=== PATIENT | male | born 1980 | race Two or more races ===

== ENCOUNTER 2023-12-27 12:47 | Inpatient (IN) | payer MEDICAID ==
[~2023-12-27] VITALS: Ht 165.1 cm; Wt 47.6 kg
[2023-12-27] MEDS: IV NS 0.9% 1,000 ML BAG IV ONE ×2 (13:00→13:30)
[2023-12-27] MEDS: CEFEPIME 1 GM in IV D5W 50 ML IV ONE (13:30)
[2023-12-27] MEDS: VANCOMYCIN 1 GM in IV D5W 250 ML IV ONE (13:30)
[2023-12-27] MEDS ORDERED: AMLO5TAB4 GT (13:43)
[2023-12-27] MEDS ORDERED: ASCO-352 GT (13:43)
[2023-12-27] MEDS ORDERED: ACET-2030 GT ×2 (13:43)
[2023-12-27] MEDS ORDERED: ACET-868 GT (13:43)
[2023-12-27] MEDS ORDERED: INSU100V7 SQ (13:43)
[2023-12-27] MEDS ORDERED: LEVE100S GT (13:43)
[2023-12-27] MEDS ORDERED: INSU100V42 SQ (13:43)
[2023-12-27] MEDS ORDERED: MELA5TAB GT (13:43)
[2023-12-27] MEDS ORDERED: PETR113O TP (13:43)
[2023-12-27] MEDS ORDERED: GABA250S2 GT (13:43)
[2023-12-27] MEDS ORDERED: POVI3780 TP (13:43)
[2023-12-27] MEDS ORDERED: ASPI-1169 GT (13:43)
[2023-12-27] MEDS ORDERED: CRAN400C GT (13:43)
[2023-12-27] MEDS ORDERED: BISA10SU11 RC (13:43)
[2023-12-27] MEDS ORDERED: CHOL200026 GT (13:43)
[2023-12-27] MEDS ORDERED: ZINC50TA69 GT (13:43)
[2023-12-27] MEDS ORDERED: LABE100T5 GT (13:43)
[2023-12-27] MEDS ORDERED: DIPH25TA25 GT (13:43)
[2023-12-27] MEDS ORDERED: IPRA3AMP22 IH (13:43)
[2023-12-27] MEDS ORDERED: MULT-594 GT (13:43)
[2023-12-27] MEDS ORDERED: LANS30CA56 GT (13:43)
[2023-12-27 13:48] LABS: BASOPHILS % (AUTO) 0.3 % (0.0-2.0); EOSINOPHILS # (AUTO) 1.4 K/uL (0.0-0.7); EOSINOPHILS % (AUTO) 12.2 % (0.0-6.0); HEMATOCRIT 28 % (39-51); HEMOGLOBIN 8.3 g/dL (13.5-17.5); LYMPHOCYTES # (AUTO) 1.5 K/uL (0.8-4.8); LYMPHOCYTES % (AUTO) 13.3 % (20.0-44.0); MEAN CORPUSCULAR HEMOGLOBIN 27 PG (26.0-33.0); MEAN CORPUSCULAR HGB CONC 30 g/dl (31.0-36.0); MEAN CORPUSCULAR VOLUME 88 fL (80-96); MONOCYTES # (AUTO) 0.3 K/uL (0.1-1.30); MONOCYTES % (AUTO) 2.5 % (2.0-12.0); NEUTROPHILS # (AUTO) 8.1 K/uL (1.8-8.9); NEUTROPHILS % (AUTO) 71.7 % (43.0-81.0); PLATELET COUNT (AUTO) 465 K/uL (150-450); RED BLOOD CELL COUNT(AUTO) 3.11 MIL/uL (4.5-6.0); RED CELL DISTRIBUTION WIDTH 22.7 % (11.5-15.0); WHITE BLOOD COUNT (AUTO) 11.2 K/uL (4.3-11.0)
[2023-12-27 13:57] LABS: CALCIUM, SERUM 9.8 mg/dL (8.5-10.1); CREATININE 1.3 mg/dL (0.6-1.3); POTASSIUM 3.8 mmol/L (3.5-5.1)
[2023-12-27 14:01] LABS: ALBUMIN 2.3 g/dL (3.4-5.0); BILIRUBIN,DIRECT 0.1 mg/dL (0.0-0.2); BILIRUBIN,TOTAL 0.2 mg/dL (0.2-1.0); TOTAL PROTEIN, SERUM 8.1 g/dL (6.4-8.2)
[2023-12-27 14:04] LABS: LACTIC ACID 1.6 mmol/L (0.4-2.0)
[2023-12-27 14:28] LABS: INR 0.96 (0.91-1.10); PARTIAL THROMBOPLASTIN TIME 23.6 SEC (24.3-34.3); PROTHROMBIN TIME 10.2 SECS (9.2-11.1)
[2023-12-27 15:24] LABS: APPEARANCE,URINE CLEAR (CLEAR); BILIRUBIN,URINE NEGATIVE (NEGATIVE); BLOOD, URINE NEGATIVE Ery/uL (NEGATIVE); COLOR,URINE YELLOW (YELLOW); KETONES,URINE NEGATIVE (NEGATIVE); LEUKOCYTE ESTERASE ,URINE NEGATIVE (NEGATIVE); NITRITE, URINE POSITIVE (NEGATIVE); PROTEIN,URINE 3+ mg/dl (NEGATIVE); UGLUCOSE NEGATIVE (NEGATIVE); UROBILINOGEN,URINE 0.2 EU/dL (0.2)
[2023-12-27] MEDS ORDERED: MAGNESIUM HYDROXIDE 30 ML UDC PO PRN (15:30)
[2023-12-27] MEDS ORDERED: ONDANSETRON HCL/PF 4 MG/2 ML VIAL IVP PRN (15:30)
[2023-12-27] MEDS ORDERED: MAG HYDROX/AL HYDROX/SIMETH 30 ML UDC PO PRN (15:30)
[2023-12-27] MEDS ORDERED: ZOLPIDEM TARTRATE 5 MG TABLET PO PRN (15:30)
[2023-12-27 15:35] LABS: ADD URINE CULTURE YES; BACTERIA,URINE 1+ /HPF (None Seen); RBC,URINE 0-2 /HPF (0-2); SQUAMOUS EPITHELIAL CELL,UR Few /HPF (None Seen); WBC,URINE 0-2 /HPF (0-3)
[2023-12-27 15:36] LABS: YEAST,URINE Few /HPF (None Seen)
[2023-12-27 17:00] VITALS: BP 134/80; TEMP 97.9; O2SAT 96
[2023-12-27] MEDS: IV NS 0.9% 1,000 ML IV PRN (17:52)
[2023-12-27 18:32] LABS: CALCIUM, SERUM 9.1 mg/dL (8.5-10.1); POTASSIUM 3.6 mmol/L (3.5-5.1)
[2023-12-27 20:00] VITALS: BP 135/74; TEMP 97.8; O2SAT 99
[2023-12-27] MEDS ORDERED: DIATR MEGLU/DIATRIZOATE SODIUM 30 ML BOTTLE (GASTROGRAPHIN) ONE (20:21)
[2023-12-27] MEDS: CEFEPIME 1 GM in IV D5W 50 ML IV SCH (21:16)
[2023-12-28] VITALS (11 sets, daily range): BP systolic 124–156; BP diastolic 65–84; TEMP 97.7–100.5; O2SAT 96–99
[2023-12-28] MEDS: VANCOMYCIN 750 MG in IV D5W 250 ML IV SCH (00:39)
[2023-12-28] MEDS: IV 1/2NS 1000 ML 1,000 ML IV PRN (02:48)
[2023-12-28] MEDS: GLUCERNA 1.2 1,000 ML BOTTLE NG PRN (09:57)
[2023-12-28 10:42] LABS: BASOPHILS # (AUTO) 0.1 K/uL (0.0-0.2); BASOPHILS % (AUTO) 0.9 % (0.0-2.0); EOSINOPHILS # (AUTO) 0.6 K/uL (0.0-0.7); EOSINOPHILS % (AUTO) 9.5 % (0.0-6.0); HEMATOCRIT 30 % (39-51); HEMOGLOBIN 8.9 g/dL (13.5-17.5); LYMPHOCYTES # (AUTO) 0.6 K/uL (0.8-4.8); LYMPHOCYTES % (AUTO) 8.4 % (20.0-44.0); MEAN CORPUSCULAR HEMOGLOBIN 27 PG (26.0-33.0); MEAN CORPUSCULAR HGB CONC 30 g/dl (31.0-36.0); MEAN CORPUSCULAR VOLUME 89 fL (80-96); MONOCYTES # (AUTO) 0.1 K/uL (0.1-1.30); MONOCYTES % (AUTO) 2.2 % (2.0-12.0); NEUTROPHILS # (AUTO) 5.3 K/uL (1.8-8.9); PLATELET COUNT (AUTO) 572 K/uL (150-450); RED BLOOD CELL COUNT(AUTO) 3.36 MIL/uL (4.5-6.0); RED CELL DISTRIBUTION WIDTH 22.8 % (11.5-15.0); WHITE BLOOD COUNT (AUTO) 6.7 K/uL (4.3-11.0)
[2023-12-28 10:53] LABS: CALCIUM, SERUM 9.5 mg/dL (8.5-10.1); CREATININE 1.1 mg/dL (0.6-1.3); POTASSIUM 4.1 mmol/L (3.5-5.1)
[2023-12-28] MEDS: ACETAMINOPHEN 325 MG TABLET PO PRN (12:10)
[2023-12-28] MEDS: FREE WATER VIA TUBE FEEDING GT SCH (12:41)
[2023-12-28] MEDS ORDERED: Medication Not On Formulary EA (Ipratropium/Albuterol Sulfate (Ipratr-Albuterol 0.5-3 Mg IH PRN (17:00)
[2023-12-28] MEDS ORDERED: DEXTROSE 50%-WATER 50 ML DISP.SYRIN IV PRN (17:00)
[2023-12-28] MEDS: LEVETIRACETAM SOL (5 ML) 100 MG/ML UDC GT SCH (17:23)
[2023-12-28] MEDS: ASPIRIN 81 MG TAB.CHEW GT SCH (17:23)
[2023-12-28] MEDS: LABETALOL HCL (100MG) 100 MG TABLET GT SCH (17:24)
[2023-12-28] MEDS: AMLODIPINE BESYLATE 5 MG TABLET GT SCH (17:24)
[2023-12-28] MEDS: BLOOD SUGAR DIAGNOSTIC 1 EACH STRIP IN SCH (17:25)
[2023-12-28] MEDS ORDERED: ALBUTEROL FS 2.5 MG/3 ML VIAL.NEB NEB PRN (17:30)
[2023-12-28] MEDS ORDERED: IPRATROPIUM NEB FS 0.5 MG/2.5 ML AMPUL.NEB NEB PRN (17:30)
[2023-12-28] MEDS: THERAHONEY GEL 1.5 OZ TUBE TP SCH (17:33)
[2023-12-28] MEDS: INSULIN REGULAR, HUMAN 100 UNIT/ML 3 ML VIAL SQ PRN (17:53)
[2023-12-28] MEDS: INSULIN GLARGINE, 100 UNIT/ML CARTRIDGE SQ SCH (17:54)
[2023-12-28] MEDS ORDERED: BLOOD SUGAR DIAGNOSTIC 1 EACH STRIP IN SCH (18:00)
[2023-12-28] MEDS: GABAPENTIN 300 MG CAPSULE GT SCH (21:15)
[2023-12-29] MEDS: Z GUARD REMEDY 4 OZ OINT TP PRN (00:33)
[2023-12-29 01:15] VITALS: BP 122/64; TEMP 99; O2SAT 88
[2023-12-29 04:49] VITALS: BP 133/66; TEMP 98.8; O2SAT 99
[2023-12-29 07:00] VITALS: BP 126/68; TEMP 98.1; O2SAT 99
[2023-12-29 07:04] LABS: BASOPHILS # (AUTO) 0.1 K/uL (0.0-0.2); EOSINOPHILS # (AUTO) 0.4 K/uL (0.0-0.7); EOSINOPHILS % (AUTO) 4.8 % (0.0-6.0); HEMATOCRIT 23 % (39-51); HEMOGLOBIN 7.2 g/dL (13.5-17.5); LYMPHOCYTES % (AUTO) 12.5 % (20.0-44.0); MEAN CORPUSCULAR HEMOGLOBIN 27 PG (26.0-33.0); MEAN CORPUSCULAR HGB CONC 31 g/dl (31.0-36.0); MEAN CORPUSCULAR VOLUME 88 fL (80-96); MONOCYTES # (AUTO) 0.2 K/uL (0.1-1.30); MONOCYTES % (AUTO) 2.7 % (2.0-12.0); PLATELET COUNT (AUTO) 497 K/uL (150-450); RED BLOOD CELL COUNT(AUTO) 2.62 MIL/uL (4.5-6.0); RED CELL DISTRIBUTION WIDTH 22.8 % (11.5-15.0); WHITE BLOOD COUNT (AUTO) 7.6 K/uL (4.3-11.0)
[2023-12-29 07:21] LABS: CALCIUM, SERUM 9.2 mg/dL (8.5-10.1); CREATININE 0.9 mg/dL (0.6-1.3); MAGNESIUM 3.1 mg/dL (1.8-2.4); PHOSPHORUS 2.5 mg/dL (2.5-4.9); POTASSIUM 4.1 mmol/L (3.5-5.1)
[2023-12-29 11:30] VITALS: BP 135/75; TEMP 98.4; O2SAT 97
[2023-12-29] MEDS: IV D5W 1,000 ML IV ONE (12:37)
[2023-12-29] MEDS: THERAHONEY GEL 1.5 OZ TUBE TP SCH (12:37)
[2023-12-29] MEDS: VANCOMYCIN 500 MG in IV D5W 100ml IV SCH (12:39)
[2023-12-29] MEDS: PANTOPRAZOLE 40 MG/PACK PACK GT SCH (13:56)
[2023-12-29] MEDS: MULTIVIT W/MINERALS 1 TAB TABLET GT SCH (13:56)
[2023-12-29] MEDS: ASCORBIC ACID 500 MG TABLET GT SCH (13:57)
[2023-12-29] MEDS: ZINC SULFATE 220 MG CAPSULE GT SCH (13:57)
[2023-12-29] MEDS: CHOLECALCIFEROL 1,000 UNIT TABLET (VIT D3) GT SCH (13:57)
[2023-12-29 16:00] VITALS: BP 130/71; TEMP 98.2; O2SAT 100
[2023-12-29 20:00] VITALS: BP 122/70; TEMP 98.1; O2SAT 100
[2023-12-30] VITALS (7 sets, daily range): BP systolic 110–188; BP diastolic 58–75; TEMP 97.9–98.8; O2SAT 98–100
[2023-12-30 07:32] LABS: CALCIUM, SERUM 8.3 mg/dL (8.5-10.1); CREATININE 0.8 mg/dL (0.6-1.3); POTASSIUM 3.6 mmol/L (3.5-5.1)
[2023-12-30] MEDS: THERAHONEY GEL 1.5 OZ TUBE TP SCH (08:26)
[2023-12-30 12:11] LABS: THYROID STIMULATING HORMONE 1.48 uIU/mL (0.358-3.74); URIC ACID 6.5 mg/dL (2.6-7.2)
[2023-12-30 12:26] LABS: MAGNESIUM 2.6 mg/dL (1.8-2.4); PHOSPHORUS 2.7 mg/dL (2.5-4.9)
[2023-12-31 05:58] VITALS: O2SAT 99
[2023-12-31 06:43] LABS: BASOPHILS % (AUTO) 0.6 % (0.0-2.0); EOSINOPHILS # (AUTO) 1.4 K/uL (0.0-0.7); HEMATOCRIT 22 % (39-51); HEMOGLOBIN 7.1 g/dL (13.5-17.5); LYMPHOCYTES # (AUTO) 0.8 K/uL (0.8-4.8); LYMPHOCYTES % (AUTO) 14.2 % (20.0-44.0); MEAN CORPUSCULAR HEMOGLOBIN 27 PG (26.0-33.0); MEAN CORPUSCULAR HGB CONC 32 g/dl (31.0-36.0); MEAN CORPUSCULAR VOLUME 85 fL (80-96); MONOCYTES # (AUTO) 0.2 K/uL (0.1-1.30); MONOCYTES % (AUTO) 3.2 % (2.0-12.0); NEUTROPHILS # (AUTO) 2.9 K/uL (1.8-8.9); NEUTROPHILS % (AUTO) 55.1 % (43.0-81.0); PLATELET COUNT (AUTO) 494 K/uL (150-450); RED BLOOD CELL COUNT(AUTO) 2.59 MIL/uL (4.5-6.0); RED CELL DISTRIBUTION WIDTH 21.8 % (11.5-15.0); WHITE BLOOD COUNT (AUTO) 5.3 K/uL (4.3-11.0)
[2023-12-31 06:58] LABS: EOSINOPHILS % (AUTO) 26.9 % (0.0-6.0)
[2023-12-31 07:26] LABS: CREATININE 0.6 mg/dL (0.6-1.3); MAGNESIUM 2.2 mg/dL (1.8-2.4); PHOSPHORUS 2.8 mg/dL (2.5-4.9); POTASSIUM 3.8 mmol/L (3.5-5.1)
[2023-12-31 08:00] VITALS: BP 134/79; TEMP 97.7; O2SAT 100
[2023-12-31 08:11] LABS: EOSINOPHILS % (MANUAL) 23 % (0-4); LYMPHOCYTES % (MANUAL) 16 % (16-48); MONOCYTES % (MANUAL) 1 % (0-11.0); NEUTROPHILS % (MANUAL) 60 (42-76); PLATELET ESTIMATE INCREASED
[2023-12-31 08:16] LABS: ANISOCYTOSIS 2+
[2023-12-31 16:00] VITALS: BP 144/84; TEMP 97.9; O2SAT 100
[2023-12-31 20:00] VITALS: BP 112/76; TEMP 97.8; O2SAT 100
[2024-01-01 05:11] VITALS: O2SAT 99
[2024-01-01] MEDS ORDERED: MAGNESIUM HYDROXIDE 30 ML UDC GT PRN (06:30)
[2024-01-01] MEDS ORDERED: MAG HYDROX/AL HYDROX/SIMETH 30 ML UDC GT PRN (06:30)
[2024-01-01] MEDS ORDERED: ZOLPIDEM TARTRATE 5 MG TABLET GT PRN (06:30)
[2024-01-01 07:23] LABS: BASOPHILS % (AUTO) 0.6 % (0.0-2.0); EOSINOPHILS # (AUTO) 1.3 K/uL (0.0-0.7); HEMATOCRIT 22 % (39-51); HEMOGLOBIN 7.2 g/dL (13.5-17.5); LYMPHOCYTES # (AUTO) 0.8 K/uL (0.8-4.8); LYMPHOCYTES % (AUTO) 18.7 % (20.0-44.0); MEAN CORPUSCULAR HEMOGLOBIN 28 PG (26.0-33.0); MEAN CORPUSCULAR HGB CONC 33 g/dl (31.0-36.0); MEAN CORPUSCULAR VOLUME 86 fL (80-96); MONOCYTES # (AUTO) 0.2 K/uL (0.1-1.30); MONOCYTES % (AUTO) 4.8 % (2.0-12.0); NEUTROPHILS # (AUTO) 2.1 K/uL (1.8-8.9); NEUTROPHILS % (AUTO) 46.7 % (43.0-81.0); PLATELET COUNT (AUTO) 478 K/uL (150-450); RED BLOOD CELL COUNT(AUTO) 2.56 MIL/uL (4.5-6.0); RED CELL DISTRIBUTION WIDTH 21.2 % (11.5-15.0); WHITE BLOOD COUNT (AUTO) 4.5 K/uL (4.3-11.0)
[2024-01-01 07:29] LABS: EOSINOPHILS % (AUTO) 29.2 % (0.0-6.0)
[2024-01-01 07:30] VITALS: BP 133/75; O2SAT 95
[2024-01-01 07:34] LABS: CALCIUM, SERUM 8.2 mg/dL (8.5-10.1); CREATININE 0.5 mg/dL (0.6-1.3); MAGNESIUM 2.1 mg/dL (1.8-2.4); POTASSIUM 4.1 mmol/L (3.5-5.1)
[2024-01-01 08:35] VITALS: BP 130/75
[2024-01-01] MEDS: ACETAMINOPHEN 650 MG/20.3 ML UDC GT PRN (09:03)
[2024-01-01] MEDS: CEFEPIME 2 GM in IV D5W 100 ML IV SCH (09:18)
[2024-01-01] MEDS ORDERED: CEFE2FRO IV (12:26)
[2024-01-01 15:42] LABS: EOSINOPHILS % (MANUAL) 27 % (0-4); LYMPHOCYTES % (MANUAL) 16 % (16-48); MONOCYTES % (MANUAL) 1 % (0-11.0); NEUTROPHILS % (MANUAL) 56 (42-76); PLATELET ESTIMATE ADEQUATE
[2024-01-01 15:43] LABS: ANISOCYTOSIS 1+
== END 2024-01-01 14:30 | DRG 720 ==
LOC: ER 12:52 → TELE 16:13 → MED 12-30 10:42
PROVIDERS: ADMIT Nurse Practitioner Acute Care; ATTEND Nurse Practitioner Acute Care
DX: A41.9 Sepsis, unspecified organism (principal); G93.41 Metabolic encephalopathy; L89.143 Pressure ulcer of left lower back, stage 3; L89.133 Pressure ulcer of right lower back, stage 3; E44.0 Moderate protein-calorie malnutrition; N17.9 Acute kidney failure, unspecified; E87.0 Hyperosmolality and hypernatremia; L89.153 Pressure ulcer of sacral region, stage 3; L89.894 Pressure ulcer of other site, stage 4; L89.313 Pressure ulcer of right buttock, stage 3; R53.2 Functional quadriplegia; E11.22 Type 2 diabetes mellitus with diabetic chronic kidney disease; D64.9 Anemia, unspecified; L89.213 Pressure ulcer of right hip, stage 3; E86.0 Dehydration; N18.9 Chronic kidney disease, unspecified; Z87.820 Personal history of traumatic brain injury; Z93.1 Gastrostomy status; Z68.1 Body mass index [BMI] 19.9 or less, adult; I12.9 Hypertensive chronic kidney disease with stage 1 through stage 4 chronic kidney disease, or unspecified chronic kidney disease; Z74.01 Bed confinement status; R13.10 Dysphagia, unspecified; K21.9 Gastro-esophageal reflux disease without esophagitis; F20.9 Schizophrenia, unspecified; Z79.899 Other long term (current) drug therapy; Z79.51 Long term (current) use of inhaled steroids; Z79.4 Long term (current) use of insulin; Z79.82 Long term (current) use of aspirin; M89.8X9 Other specified disorders of bone, unspecified site; B96.89 Other specified bacterial agents as the cause of diseases classified elsewhere; L89.600 Pressure ulcer of unspecified heel, unstageable; S81.812A Laceration without foreign body, left lower leg, initial encounter; X58.XXXA Exposure to other specified factors, initial encounter; Y92.9 Unspecified place or not applicable; E88.09 Other disorders of plasma-protein metabolism, not elsewhere classified; L98.9 Disorder of the skin and subcutaneous tissue, unspecified; M62.462 Contracture of muscle, left lower leg; M62.461 Contracture of muscle, right lower leg; B37.49 Other urogenital candidiasis; E11.65 Type 2 diabetes mellitus with hyperglycemia; E86.9 Volume depletion, unspecified
CPT/HCPCS: 36415; 71045-TC; 74018; 80048-TC; 80061-TC; 80076-TC; 80202-TC; 81001; 82962-TC; 83605-TC; 83690-TC; 83735-TC; 84100-TC; 84443-TC; 84484-TC; 84550-TC; 85025-TC; 85730-TC; 87040-TC; 87081-TC; 87086-TC; 94760-TC; 94761-TC; 94799-TC; A4223; A6253; A6403; G0378; J0692; J1815; J1953; J3370; J3371; J3490; J7030; J7040; J7042; J7060; J7070; Q9963

== ENCOUNTER 2024-01-31 09:28 | Inpatient (IN) | payer MEDICAID ==
[2024-01-31] VITALS (9 sets, daily range): BP systolic 120–135; BP diastolic 74–83; TEMP 97.4–98.5; O2SAT 93–100
[~2024-01-31] VITALS: Ht 165.1 cm; Wt 45.8 kg
[~2024-01-31 09:28] MED LIST: ACET-2030 GT; ACET-868 GT; AMLO5TAB4 GT; ASCO-352 GT; ASPI-1169 GT; BISA10SU11 RC; CEFE2FRO IV; CHOL200026 GT; CRAN400C GT; DIPH25TA25 GT; GABA250S2 GT; INSU100V42 SQ; INSU100V7 SQ; IPRA3AMP22 IH; LABE100T5 GT; LANS30CA56 GT; LEVE100S GT; MELA5TAB GT; MULT-594 GT; PETR113O TP; POVI3780 TP; ZINC50TA69 GT
[2024-01-31 10:08] LABS: BASOPHILS # (AUTO) 0.1 K/uL (0.0-0.2); BASOPHILS % (AUTO) 0.9 % (0.0-2.0); EOSINOPHILS # (AUTO) 3.1 K/uL (0.0-0.7); HEMATOCRIT 23 % (39-51); HEMOGLOBIN 7.2 g/dL (13.5-17.5); LYMPHOCYTES # (AUTO) 0.8 K/uL (0.8-4.8); LYMPHOCYTES % (AUTO) 10.8 % (20.0-44.0); MEAN CORPUSCULAR HEMOGLOBIN 28 PG (26.0-33.0); MEAN CORPUSCULAR HGB CONC 32 g/dl (31.0-36.0); MEAN CORPUSCULAR VOLUME 88 fL (80-96); MONOCYTES # (AUTO) 0.3 K/uL (0.1-1.30); MONOCYTES % (AUTO) 3.7 % (2.0-12.0); NEUTROPHILS # (AUTO) 3.2 K/uL (1.8-8.9); NEUTROPHILS % (AUTO) 42.6 % (43.0-81.0); PLATELET COUNT (AUTO) 722 K/uL (150-450); RED BLOOD CELL COUNT(AUTO) 2.58 MIL/uL (4.5-6.0); RED CELL DISTRIBUTION WIDTH 18.7 % (11.5-15.0); WHITE BLOOD COUNT (AUTO) 7.4 K/uL (4.3-11.0)
[2024-01-31] MEDS ORDERED: THERAHONEY TP (10:15)
[2024-01-31] MEDS ORDERED: AMIN30LI66 GT (10:15)
[2024-01-31] MEDS ORDERED: XEROFORM TP (10:15)
[2024-01-31] MEDS ORDERED: TRIA80CR12 TP (10:15)
[2024-01-31] MEDS ORDERED: NUT.237L30 GT (10:15)
[2024-01-31 10:19] LABS: INR 0.97 (0.91-1.10); PARTIAL THROMBOPLASTIN TIME 26.7 SEC (24.3-34.3); PROTHROMBIN TIME 10.3 SECS (9.2-11.1)
[2024-01-31 10:28] LABS: CALCIUM, SERUM 9.3 mg/dL (8.5-10.1); CREATININE 0.9 mg/dL (0.6-1.3); POTASSIUM 4.2 mmol/L (3.5-5.1)
[2024-01-31 10:33] LABS: ALBUMIN 1.8 g/dL (3.4-5.0); BILIRUBIN,DIRECT 0.1 mg/dL (0.0-0.2); BILIRUBIN,TOTAL 0.2 mg/dL (0.2-1.0); TOTAL PROTEIN, SERUM 7.8 g/dL (6.4-8.2)
[2024-01-31 12:14] LABS: ANISOCYTOSIS 1+; BASOPHILS % (MANUAL) 0 % (0.0-2.0); EOSINOPHILS % (MANUAL) 42 % (0-4); HYPOCHROMASIA RARE; LYMPHOCYTES % (MANUAL) 11 % (16-48); MONOCYTES % (MANUAL) 2 % (0-11.0); NEUTROPHILS % (MANUAL) 45 (42-76); PLATELET ESTIMATE ADEQUATE; STOMATOCYTES 1+
[2024-01-31] MEDS ORDERED: ONDANSETRON HCL/PF 4 MG/2 ML VIAL IVP PRN (15:00)
[2024-01-31] MEDS ORDERED: Medication Not On Formulary EA (Ipratropium/Albuterol Sulfate (Ipratr-Albuterol 0.5-3 Mg IH PRN (15:00)
[2024-01-31] MEDS ORDERED: Z GUARD REMEDY 4 OZ OINT TP PRN (15:00)
[2024-01-31] MEDS ORDERED: IPRATROPIUM NEB FS 0.5 MG/2.5 ML AMPUL.NEB NEB PRN (16:30)
[2024-01-31] MEDS ORDERED: ALBUTEROL FS 2.5 MG/3 ML VIAL.NEB NEB PRN (16:30)
[2024-01-31] MEDS: LEVETIRACETAM SOL (5 ML) 100 MG/ML UDC GT SCH (17:36)
[2024-01-31] MEDS: LABETALOL HCL (100MG) 100 MG TABLET GT SCH (17:39)
[2024-01-31 17:45] LABS: IRON, SERUM 19 ug/dl (50-175); TOTAL IRON BINDING CAPACITY 177 ug/dl (250-450)
[2024-01-31] MEDS: GLUCERNA 1.2 1,000 ML BOTTLE NG PRN (17:46)
[2024-01-31 17:58] LABS: FERRITIN 220 ng/mL (8-388)
[2024-01-31] MEDS: BLOOD SUGAR DIAGNOSTIC 1 EACH STRIP IN SCH (18:24)
[2024-01-31 19:09] LABS: APPEARANCE,URINE TURBID (CLEAR); BILIRUBIN,URINE NEGATIVE (NEGATIVE); BLOOD, URINE NEGATIVE Ery/uL (NEGATIVE); COLOR,URINE YELLOW (YELLOW); KETONES,URINE NEGATIVE (NEGATIVE); LEUKOCYTE ESTERASE ,URINE 2+ (NEGATIVE); NITRITE, URINE NEGATIVE (NEGATIVE); PROTEIN,URINE 3+ mg/dl (NEGATIVE); UGLUCOSE NEGATIVE (NEGATIVE); UROBILINOGEN,URINE 0.2 EU/dL (0.2)
[2024-01-31 19:11] LABS: ADD URINE CULTURE YES; BACTERIA,URINE 2+ /HPF (None Seen); MUCUS,URINE Few /LPF (None Seen); SQUAMOUS EPITHELIAL CELL,UR None Seen /HPF (None Seen); YEAST,URINE Many /HPF (None Seen)
[2024-01-31] MEDS: GABAPENTIN 300 MG CAPSULE GT SCH (20:42)
[2024-02-01] VITALS: BP 133/84; TEMP 98.1; O2SAT 100
[2024-02-01 04:00] VITALS: BP 129/78; TEMP 98.6; O2SAT 100
[2024-02-01] MEDS: INSULIN REGULAR, HUMAN 100 UNIT/ML 3 ML VIAL SQ PRN (06:11)
[2024-02-01 08:00] VITALS: BP 126/83; TEMP 97.7; O2SAT 100
[2024-02-01] MEDS: ASCORBIC ACID 500 MG TABLET GT SCH (08:40)
[2024-02-01] MEDS: CHOLECALCIFEROL 1,000 UNIT TABLET (VIT D3) GT SCH (08:40)
[2024-02-01] MEDS: MULTIVITAMINS,THERAGRAN 1 UDTAB TABLET GT SCH (08:40)
[2024-02-01] MEDS: AMLODIPINE BESYLATE 5 MG TABLET GT SCH (08:41)
[2024-02-01] MEDS: INSULIN GLARGINE, 100 UNIT/ML CARTRIDGE SQ SCH (09:21)
[2024-02-01] MEDS: THERAHONEY GEL 1.5 OZ TUBE TP SCH ×2 (11:56→13:21)
[2024-02-01 12:00] VITALS: BP 131/80; TEMP 97.3; O2SAT 92
[2024-02-01 12:42] LABS: CALCIUM, SERUM 9.1 mg/dL (8.5-10.1); CREATININE 0.7 mg/dL (0.6-1.3); MAGNESIUM 2.5 mg/dL (1.8-2.4); PHOSPHORUS 3.5 mg/dL (2.5-4.9); POTASSIUM 4.1 mmol/L (3.5-5.1)
[2024-02-01 12:59] LABS: THYROID STIMULATING HORMONE 1.61 uIU/mL (0.358-3.74)
[2024-02-01 13:12] LABS: BASOPHILS % (AUTO) 0.4 % (0.0-2.0); EOSINOPHILS # (AUTO) 3.1 K/uL (0.0-0.7); HEMATOCRIT 29 % (39-51); HEMOGLOBIN 9.7 g/dL (13.5-17.5); LYMPHOCYTES # (AUTO) 0.8 K/uL (0.8-4.8); LYMPHOCYTES % (AUTO) 9.6 % (20.0-44.0); MEAN CORPUSCULAR HEMOGLOBIN 28 PG (26.0-33.0); MEAN CORPUSCULAR HGB CONC 33 g/dl (31.0-36.0); MEAN CORPUSCULAR VOLUME 85 fL (80-96); MONOCYTES # (AUTO) 0.4 K/uL (0.1-1.30); MONOCYTES % (AUTO) 4.8 % (2.0-12.0); NEUTROPHILS # (AUTO) 3.9 K/uL (1.8-8.9); NEUTROPHILS % (AUTO) 47.6 % (43.0-81.0); PLATELET COUNT (AUTO) 676 K/uL (150-450); RED BLOOD CELL COUNT(AUTO) 3.44 MIL/uL (4.5-6.0); RED CELL DISTRIBUTION WIDTH 20.3 % (11.5-15.0); WHITE BLOOD COUNT (AUTO) 8.2 K/uL (4.3-11.0)
[2024-02-01 13:13] LABS: EOSINOPHILS % (AUTO) 37.6 % (0.0-6.0)
[2024-02-01 16:00] VITALS: BP 132/79; TEMP 97.9; O2SAT 92
[2024-02-01 16:13] LABS: BAND % (MANUAL) 2 % (0.0-5.0); EOSINOPHILS % (MANUAL) 8 % (0-4); LYMPHOCYTES % (MANUAL) 10 % (16-48); NEUTROPHILS % (MANUAL) 80 (42-76)
[2024-02-01 20:00] VITALS: BP 126/75; TEMP 98.1; O2SAT 94
[2024-02-02] VITALS (8 sets, daily range): BP systolic 134–149; BP diastolic 72–90; TEMP 97.5–100.4; O2SAT 94–100
[2024-02-02] MEDS: DEXTROSE 50%-WATER 50 ML DISP.SYRIN IV PRN (00:10)
[2024-02-02 07:30] LABS: BASOPHILS % (AUTO) 0.3 % (0.0-2.0); EOSINOPHILS # (AUTO) 2.8 K/uL (0.0-0.7); HEMATOCRIT 30 % (39-51); HEMOGLOBIN 9.7 g/dL (13.5-17.5); LYMPHOCYTES # (AUTO) 0.8 K/uL (0.8-4.8); LYMPHOCYTES % (AUTO) 8.1 % (20.0-44.0); MEAN CORPUSCULAR HEMOGLOBIN 28 PG (26.0-33.0); MEAN CORPUSCULAR HGB CONC 32 g/dl (31.0-36.0); MEAN CORPUSCULAR VOLUME 86 fL (80-96); MONOCYTES # (AUTO) 0.5 K/uL (0.1-1.30); MONOCYTES % (AUTO) 4.7 % (2.0-12.0); NEUTROPHILS # (AUTO) 5.7 K/uL (1.8-8.9); NEUTROPHILS % (AUTO) 58.2 % (43.0-81.0); PLATELET COUNT (AUTO) 734 K/uL (150-450); WHITE BLOOD COUNT (AUTO) 9.9 K/uL (4.3-11.0)
[2024-02-02 07:40] LABS: CALCIUM, SERUM 9.5 mg/dL (8.5-10.1); CREATININE 0.9 mg/dL (0.6-1.3); POTASSIUM 4.5 mmol/L (3.5-5.1)
[2024-02-02 07:46] LABS: EOSINOPHILS % (AUTO) 28.7 % (0.0-6.0)
[2024-02-02 07:49] LABS: C-REACTIVE PROTEIN 2.4 mg/dL (0.0-0.30)
[2024-02-02 08:33] LABS: RHEUMATOID FACTOR SCREEN NEGATIVE (NEGATIVE)
[2024-02-02 08:45] LABS: BASOPHILS % (MANUAL) 0 % (0.0-2.0); EOSINOPHILS % (MANUAL) 25 % (0-4); LYMPHOCYTES % (MANUAL) 10 % (16-48); MONOCYTES % (MANUAL) 3 % (0-11.0); NEUTROPHILS % (MANUAL) 62 (42-76)
[2024-02-02 08:46] LABS: ANISOCYTOSIS 1+; PLATELET ESTIMATE INCREASED
[2024-02-02] MEDS: POLYETHYLENE GLYCOL 3350 17 GM POWD.PACK GT SCH (13:00)
[2024-02-02] MEDS: SOD FERRIC GLUC 125 MG in IV NS 0.9% 100 ML IV SCH (13:38)
[2024-02-02] MEDS: PERMETHRIN 5% CRM 60 GM TUBE TP ONE (13:38)
[2024-02-02] MEDS: ACETAMINOPHEN 650 MG/20.3 ML UDC GT PRN (21:07)
[2024-02-03 04:00] VITALS: BP 145/71; TEMP 100; O2SAT 96
[2024-02-03 08:00] VITALS: BP 148/86; TEMP 98.1; O2SAT 100
[2024-02-03 08:06] LABS: IMMUNOGLOBULIN A, SERUM 446 mg/dL (90-386); IMMUNOGLOBULIN G, SERUM 2189 mg/dL (603-1613); IMMUNOGLOBULIN M, SERUM 155 mg/dL (20-172)
[2024-02-03 08:36] LABS: OCCULT BLOOD STOOL NEGATIVE (NEGATIVE)
[2024-02-03] MEDS: CEFTRIAXONE 1 G in IV D5W 50 ML IV SCH (09:35)
[2024-02-03] MEDS: diphenhydrAMINE HCL ELIX 25 MG/10 ML UDC PEG PRN (11:34)
[2024-02-03 12:09] LABS: *ANA ANTI-CENTROMERE B AB <0.2 AI (0.0-0.9); *ANA ANTI-DNA(DS) AB, QN 5 IU/mL (0-9); *ANA ANTI-JO-1 <0.2 AI (0.0-0.9); *ANA ANTICHROMATIN ANTIBODY <0.2 AI (0.0-0.9); *ANA RNP ANTIBODIES <0.2 AI (0.0-0.9); *ANA SJOGREN'S ANTI-SS-A <0.2 AI (0.0-0.9); *ANA SJOGREN'S ANTI-SS-B <0.2 AI (0.0-0.9); *ANAANTI-SCLERODERMA-70 AB <0.2 AI (0.0-0.9); *ANASMITH AB <0.2 AI (0.0-0.9)
[2024-02-03 13:06] LABS: CALCIUM, SERUM 9.1 mg/dL (8.5-10.1); CREATININE 0.7 mg/dL (0.6-1.3); POTASSIUM 4.8 mmol/L (3.5-5.1)
[2024-02-03 13:15] LABS: BASOPHILS # (AUTO) 0.1 K/uL (0.0-0.2); BASOPHILS % (AUTO) 0.6 % (0.0-2.0); EOSINOPHILS # (AUTO) 1.4 K/uL (0.0-0.7); EOSINOPHILS % (AUTO) 10.6 % (0.0-6.0); HEMATOCRIT 30 % (39-51); HEMOGLOBIN 9.6 g/dL (13.5-17.5); LYMPHOCYTES # (AUTO) 0.4 K/uL (0.8-4.8); LYMPHOCYTES % (AUTO) 3.1 % (20.0-44.0); MEAN CORPUSCULAR HEMOGLOBIN 28 PG (26.0-33.0); MEAN CORPUSCULAR HGB CONC 32 g/dl (31.0-36.0); MEAN CORPUSCULAR VOLUME 87 fL (80-96); MONOCYTES # (AUTO) 0.5 K/uL (0.1-1.30); MONOCYTES % (AUTO) 3.8 % (2.0-12.0); NEUTROPHILS # (AUTO) 10.6 K/uL (1.8-8.9); NEUTROPHILS % (AUTO) 81.9 % (43.0-81.0); PLATELET COUNT (AUTO) 678 K/uL (150-450); RED BLOOD CELL COUNT(AUTO) 3.47 MIL/uL (4.5-6.0); RED CELL DISTRIBUTION WIDTH 19.8 % (11.5-15.0); WHITE BLOOD COUNT (AUTO) 12.9 K/uL (4.3-11.0)
[2024-02-03 14:32] LABS: MAGNESIUM 2.2 mg/dL (1.8-2.4); PHOSPHORUS 4.5 mg/dL (2.5-4.9)
[2024-02-03 16:00] VITALS: BP 154/78; TEMP 98.9; O2SAT 100
[2024-02-03 20:00] VITALS: BP 148/76; TEMP 102.2; O2SAT 98
[2024-02-04 04:00] VITALS: BP 128/85; TEMP 100.8; O2SAT 95
[2024-02-04 08:00] VITALS: BP 130/71; TEMP 98.4; O2SAT 98
[2024-02-04 08:42] LABS: BASOPHILS # (AUTO) 0.1 K/uL (0.0-0.2); BASOPHILS % (AUTO) 0.9 % (0.0-2.0); EOSINOPHILS # (AUTO) 0.8 K/uL (0.0-0.7); EOSINOPHILS % (AUTO) 6.4 % (0.0-6.0); HEMATOCRIT 25 % (39-51); LYMPHOCYTES # (AUTO) 0.6 K/uL (0.8-4.8); LYMPHOCYTES % (AUTO) 5.1 % (20.0-44.0); MEAN CORPUSCULAR HEMOGLOBIN 28 PG (26.0-33.0); MEAN CORPUSCULAR HGB CONC 32 g/dl (31.0-36.0); MEAN CORPUSCULAR VOLUME 87 fL (80-96); MONOCYTES # (AUTO) 0.6 K/uL (0.1-1.30); MONOCYTES % (AUTO) 5.3 % (2.0-12.0); NEUTROPHILS # (AUTO) 9.7 K/uL (1.8-8.9); NEUTROPHILS % (AUTO) 82.3 % (43.0-81.0); PLATELET COUNT (AUTO) 533 K/uL (150-450); RED BLOOD CELL COUNT(AUTO) 2.87 MIL/uL (4.5-6.0); RED CELL DISTRIBUTION WIDTH 19.5 % (11.5-15.0); WHITE BLOOD COUNT (AUTO) 11.8 K/uL (4.3-11.0)
[2024-02-04 08:48] LABS: CALCIUM, SERUM 8.9 mg/dL (8.5-10.1); CREATININE 0.9 mg/dL (0.6-1.3); MAGNESIUM 2.2 mg/dL (1.8-2.4); POTASSIUM 4.3 mmol/L (3.5-5.1)
[2024-02-04 16:00] VITALS: BP 147/75; TEMP 98.2; O2SAT 100
[2024-02-05 00:51] VITALS: BP 137/68; TEMP 100.5; O2SAT 100
[2024-02-05 04:00] VITALS: BP 145/67; TEMP 101.3; O2SAT 96
[2024-02-05 07:04] LABS: BASOPHILS % (AUTO) 0.4 % (0.0-2.0); EOSINOPHILS # (AUTO) 0.6 K/uL (0.0-0.7); EOSINOPHILS % (AUTO) 6.2 % (0.0-6.0); HEMATOCRIT 26 % (39-51); HEMOGLOBIN 8.5 g/dL (13.5-17.5); LYMPHOCYTES # (AUTO) 0.6 K/uL (0.8-4.8); LYMPHOCYTES % (AUTO) 6.1 % (20.0-44.0); MEAN CORPUSCULAR HEMOGLOBIN 28 PG (26.0-33.0); MEAN CORPUSCULAR HGB CONC 32 g/dl (31.0-36.0); MEAN CORPUSCULAR VOLUME 87 fL (80-96); MONOCYTES # (AUTO) 0.4 K/uL (0.1-1.30); MONOCYTES % (AUTO) 4.2 % (2.0-12.0); NEUTROPHILS # (AUTO) 7.8 K/uL (1.8-8.9); NEUTROPHILS % (AUTO) 83.1 % (43.0-81.0); PLATELET COUNT (AUTO) 527 K/uL (150-450); RED BLOOD CELL COUNT(AUTO) 3.03 MIL/uL (4.5-6.0); RED CELL DISTRIBUTION WIDTH 18.8 % (11.5-15.0); WHITE BLOOD COUNT (AUTO) 9.4 K/uL (4.3-11.0)
[2024-02-05 07:17] LABS: CALCIUM, SERUM 8.9 mg/dL (8.5-10.1); POTASSIUM 4.3 mmol/L (3.5-5.1)
[2024-02-05 08:00] VITALS: BP 135/60; TEMP 98.6; O2SAT 100
[2024-02-05] MEDS: MEROPENEM 1 G in IV NS 0.9% 100 ML IV SCH (09:33)
[2024-02-05] MEDS: VANCOMYCIN 1 GM in IV D5W 250ml IV ONE (09:59)
[2024-02-05 16:00] VITALS: BP 108/65; TEMP 98.7; O2SAT 100
[2024-02-05 16:11] LABS: *SPE A/G RATIO 0.4 (0.7-1.7); *SPE ALBUMIN 2.2 g/dL (2.9-4.4); *SPE ALPHA-1-GLOBULIN 0.4 g/dL (0.0-0.4); *SPE ALPHA-2-GLOBULIN 1.1 g/dL (0.4-1.0); *SPE BETA GLOBULIN 1.2 g/dL (0.7-1.3); *SPE M-SPIKE Not Observed g/dL (Not Observed); *SPE PROTEIN TOTAL 7.2 g/dL (6.0-8.5); *SPEGAMMA GLOBULIN 2.2 g/dL (0.4-1.8)
[2024-02-05 20:00] VITALS: BP 140/66; O2SAT 98
[2024-02-05] MEDS: FERROUS SULFATE (325 MG) 325 MG/TAB TABLET PO SCH (20:15)
[2024-02-05] MEDS: VANCOMYCIN 750 MG in IV D5W 250 ML IV SCH (22:00)
[2024-02-06 04:00] VITALS: BP 136/79; TEMP 97.9; O2SAT 99
[2024-02-06 08:00] VITALS: BP 121/76; TEMP 99.3; O2SAT 97
[2024-02-06 08:11] LABS: CALCIUM, SERUM 8.7 mg/dL (8.5-10.1); CREATININE 0.8 mg/dL (0.6-1.3); MAGNESIUM 2.6 mg/dL (1.8-2.4); PHOSPHORUS 2.8 mg/dL (2.5-4.9); POTASSIUM 4.6 mmol/L (3.5-5.1)
[2024-02-06 10:08] LABS: FREE KAPPA LT CHAINS SERUM 120.4 mg/L (3.3-19.4); FREE LAMBDA LT CHAIN SERUM 100.1 mg/L (5.7-26.3)
[2024-02-06 11:54] LABS: BASOPHILS % (AUTO) 0.2 % (0.0-2.0); EOSINOPHILS # (AUTO) 1.3 K/uL (0.0-0.7); EOSINOPHILS % (AUTO) 13.9 % (0.0-6.0); HEMATOCRIT 24 % (39-51); HEMOGLOBIN 7.7 g/dL (13.5-17.5); LYMPHOCYTES # (AUTO) 0.6 K/uL (0.8-4.8); LYMPHOCYTES % (AUTO) 5.7 % (20.0-44.0); MEAN CORPUSCULAR HEMOGLOBIN 28 PG (26.0-33.0); MEAN CORPUSCULAR HGB CONC 32 g/dl (31.0-36.0); MEAN CORPUSCULAR VOLUME 87 fL (80-96); MONOCYTES # (AUTO) 0.5 K/uL (0.1-1.30); MONOCYTES % (AUTO) 5.1 % (2.0-12.0); NEUTROPHILS # (AUTO) 7.3 K/uL (1.8-8.9); NEUTROPHILS % (AUTO) 75.1 % (43.0-81.0); PLATELET COUNT (AUTO) 420 K/uL (150-450); RED CELL DISTRIBUTION WIDTH 17.8 % (11.5-15.0); WHITE BLOOD COUNT (AUTO) 9.7 K/uL (4.3-11.0)
[2024-02-06 16:00] VITALS: BP 139/69; TEMP 99; O2SAT 97
[2024-02-06] MEDS: FERROUS SULFATE (325 MG) 325 MG/TAB TABLET GT SCH (16:41)
[2024-02-06 18:00] VITALS: BP 139/69; TEMP 99; O2SAT 97
[2024-02-06 20:00] VITALS: BP 126/70; TEMP 98.6; O2SAT 100
[2024-02-06] MEDS ORDERED: VANCOMYCIN 1 GM in IV D5W 250ml IV SCH (21:00)
[2024-02-07 04:00] VITALS: BP 132/78; TEMP 99; O2SAT 99
[2024-02-07 08:00] VITALS: BP 127/109; TEMP 98; O2SAT 100
[2024-02-07] MEDS: VANCOMYCIN 1 GM in IV D5W 250ml IV SCH (08:29)
[2024-02-07 10:05] LABS: BASOPHILS % (AUTO) 0.3 % (0.0-2.0); EOSINOPHILS # (AUTO) 1.2 K/uL (0.0-0.7); EOSINOPHILS % (AUTO) 18.5 % (0.0-6.0); HEMATOCRIT 25 % (39-51); HEMOGLOBIN 8.2 g/dL (13.5-17.5); LYMPHOCYTES # (AUTO) 0.6 K/uL (0.8-4.8); LYMPHOCYTES % (AUTO) 8.8 % (20.0-44.0); MEAN CORPUSCULAR HEMOGLOBIN 28 PG (26.0-33.0); MEAN CORPUSCULAR HGB CONC 32 g/dl (31.0-36.0); MEAN CORPUSCULAR VOLUME 87 fL (80-96); MONOCYTES # (AUTO) 0.4 K/uL (0.1-1.30); MONOCYTES % (AUTO) 6.6 % (2.0-12.0); NEUTROPHILS # (AUTO) 4.2 K/uL (1.8-8.9); NEUTROPHILS % (AUTO) 65.8 % (43.0-81.0); PLATELET COUNT (AUTO) 401 K/uL (150-450); RED BLOOD CELL COUNT(AUTO) 2.93 MIL/uL (4.5-6.0); RED CELL DISTRIBUTION WIDTH 17.7 % (11.5-15.0); WHITE BLOOD COUNT (AUTO) 6.5 K/uL (4.3-11.0)
[2024-02-07 10:22] LABS: CALCIUM, SERUM 8.9 mg/dL (8.5-10.1); CREATININE 0.9 mg/dL (0.6-1.3); MAGNESIUM 2.2 mg/dL (1.8-2.4); PHOSPHORUS 2.6 mg/dL (2.5-4.9); POTASSIUM 4.8 mmol/L (3.5-5.1)
[2024-02-07 16:00] VITALS: BP 119/72; TEMP 98.8; O2SAT 100
[2024-02-07 20:00] VITALS: BP 113/72; TEMP 99.1; O2SAT 100
[2024-02-08 04:00] VITALS: BP 122/78; TEMP 99.2; O2SAT 100
[2024-02-08 07:51] LABS: BASOPHILS % (AUTO) 0.4 % (0.0-2.0); EOSINOPHILS # (AUTO) 1.7 K/uL (0.0-0.7); HEMATOCRIT 24 % (39-51); HEMOGLOBIN 7.8 g/dL (13.5-17.5); LYMPHOCYTES # (AUTO) 0.8 K/uL (0.8-4.8); LYMPHOCYTES % (AUTO) 11.9 % (20.0-44.0); MEAN CORPUSCULAR HEMOGLOBIN 28 PG (26.0-33.0); MEAN CORPUSCULAR HGB CONC 32 g/dl (31.0-36.0); MEAN CORPUSCULAR VOLUME 86 fL (80-96); MONOCYTES # (AUTO) 0.5 K/uL (0.1-1.30); NEUTROPHILS # (AUTO) 3.4 K/uL (1.8-8.9); NEUTROPHILS % (AUTO) 53.7 % (43.0-81.0); PLATELET COUNT (AUTO) 359 K/uL (150-450); RED BLOOD CELL COUNT(AUTO) 2.82 MIL/uL (4.5-6.0); RED CELL DISTRIBUTION WIDTH 17.4 % (11.5-15.0); WHITE BLOOD COUNT (AUTO) 6.4 K/uL (4.3-11.0)
[2024-02-08 08:15] LABS: CALCIUM, SERUM 9.1 mg/dL (8.5-10.1); CREATININE 0.9 mg/dL (0.6-1.3); POTASSIUM 5.2 mmol/L (3.5-5.1)
[2024-02-08 08:20] VITALS: BP 135/76; TEMP 98.4; O2SAT 99
[2024-02-08 08:38] LABS: BASOPHILS % (MANUAL) 0 % (0.0-2.0); EOSINOPHILS % (MANUAL) 24 % (0-4); LYMPHOCYTES % (MANUAL) 14 % (16-48); MONOCYTES % (MANUAL) 4 % (0-11.0); NEUTROPHILS % (MANUAL) 58 (42-76); PLATELET ESTIMATE ADEQUATE
[2024-02-08 16:07] VITALS: BP 136/82; TEMP 98.2; O2SAT 100
[2024-02-08 20:00] VITALS: BP 130/85; TEMP 98.4; O2SAT 100
[2024-02-09 04:00] VITALS: BP 124/83; TEMP 98.6; O2SAT 99
[2024-02-09 07:53] LABS: BASOPHILS # (AUTO) 0.1 K/uL (0.0-0.2); BASOPHILS % (AUTO) 0.9 % (0.0-2.0); EOSINOPHILS # (AUTO) 1.7 K/uL (0.0-0.7); HEMATOCRIT 27 % (39-51); HEMOGLOBIN 8.4 g/dL (13.5-17.5); LYMPHOCYTES # (AUTO) 0.9 K/uL (0.8-4.8); LYMPHOCYTES % (AUTO) 14.9 % (20.0-44.0); MEAN CORPUSCULAR HEMOGLOBIN 28 PG (26.0-33.0); MEAN CORPUSCULAR HGB CONC 32 g/dl (31.0-36.0); MEAN CORPUSCULAR VOLUME 87 fL (80-96); MONOCYTES # (AUTO) 0.4 K/uL (0.1-1.30); NEUTROPHILS # (AUTO) 3.1 K/uL (1.8-8.9); NEUTROPHILS % (AUTO) 49.9 % (43.0-81.0); PLATELET COUNT (AUTO) 405 K/uL (150-450); RED BLOOD CELL COUNT(AUTO) 3.04 MIL/uL (4.5-6.0); RED CELL DISTRIBUTION WIDTH 18.4 % (11.5-15.0); WHITE BLOOD COUNT (AUTO) 6.1 K/uL (4.3-11.0)
[2024-02-09 07:58] LABS: EOSINOPHILS % (AUTO) 28.3 % (0.0-6.0)
[2024-02-09 08:00] VITALS: BP 154/82; TEMP 97.7; TEMP 98.2; O2SAT 100
[2024-02-09 08:02] LABS: CALCIUM, SERUM 9.9 mg/dL (8.5-10.1); CREATININE 0.7 mg/dL (0.6-1.3); POTASSIUM 4.9 mmol/L (3.5-5.1)
[2024-02-09 08:22] VITALS: O2SAT 99
[2024-02-09 12:58] LABS: ANISOCYTOSIS 1+; BAND % (MANUAL) 2 % (0.0-5.0); BASOPHILS % (MANUAL) 0 % (0.0-2.0); EOSINOPHILS % (MANUAL) 20 % (0-4); LYMPHOCYTES % (MANUAL) 15 % (16-48); MONOCYTES % (MANUAL) 8 % (0-11.0); NEUTROPHILS % (MANUAL) 55 (42-76); PLATELET ESTIMATE ADEQUATE
[2024-02-09 16:00] VITALS: BP 154/82; TEMP 98.2; O2SAT 100
[2024-02-09] MEDS: INDOMETHACIN 25 MG CAPSULE PO SCH (18:04)
[2024-02-09 20:00] VITALS: BP 138/72; TEMP 98.4; O2SAT 95
[2024-02-10 04:00] VITALS: BP 115/77; TEMP 98.7; O2SAT 100
[2024-02-10 08:00] VITALS: BP 124/72; TEMP 98.4; O2SAT 100
[2024-02-10] MEDS: COLCHICINE 0.6 MG TABLET PO SCH (09:12)
[2024-02-10] MEDS ORDERED: FERR325T28 GT (11:55)
[2024-02-10] MEDS ORDERED: INDO-13 PO (11:55)
[2024-02-10] MEDS ORDERED: Colchicine PO (11:55)
[2024-02-10] MEDS ORDERED: VANC1PLA9 IV (11:55)
[2024-02-10 13:18] LABS: BASOPHILS # (AUTO) 0.1 K/uL (0.0-0.2); BASOPHILS % (AUTO) 0.9 % (0.0-2.0); EOSINOPHILS # (AUTO) 1.8 K/uL (0.0-0.7); HEMATOCRIT 24 % (39-51); HEMOGLOBIN 7.5 g/dL (13.5-17.5); LYMPHOCYTES # (AUTO) 0.9 K/uL (0.8-4.8); LYMPHOCYTES % (AUTO) 12.3 % (20.0-44.0); MEAN CORPUSCULAR HEMOGLOBIN 27 PG (26.0-33.0); MEAN CORPUSCULAR HGB CONC 32 g/dl (31.0-36.0); MEAN CORPUSCULAR VOLUME 85 fL (80-96); MONOCYTES # (AUTO) 0.4 K/uL (0.1-1.30); NEUTROPHILS # (AUTO) 4.1 K/uL (1.8-8.9); NEUTROPHILS % (AUTO) 56.3 % (43.0-81.0); PLATELET COUNT (AUTO) 401 K/uL (150-450); RED BLOOD CELL COUNT(AUTO) 2.76 MIL/uL (4.5-6.0); RED CELL DISTRIBUTION WIDTH 17.6 % (11.5-15.0); WHITE BLOOD COUNT (AUTO) 7.2 K/uL (4.3-11.0)
[2024-02-10 13:19] LABS: EOSINOPHILS % (AUTO) 25.5 % (0.0-6.0)
[2024-02-10 13:34] LABS: CALCIUM, SERUM 9.8 mg/dL (8.5-10.1); CREATININE 0.9 mg/dL (0.6-1.3)
[2024-02-10 16:00] VITALS: BP 124/56; TEMP 98.2; O2SAT 100
[2024-02-10 17:47] LABS: BAND % (MANUAL) 4 % (0.0-5.0); EOSINOPHILS % (MANUAL) 24 % (0-4); LYMPHOCYTES % (MANUAL) 13 % (16-48); MONOCYTES % (MANUAL) 4 % (0-11.0); NEUTROPHILS % (MANUAL) 55 (42-76); PLATELET ESTIMATE ADEQUATE; ROULEAUX 1+
[2024-02-10 17:48] LABS: ANISOCYTOSIS 1+; STOMATOCYTES 1+
[2024-02-10 20:00] VITALS: BP 110/73; TEMP 97.5; O2SAT 100
[2024-02-11 04:00] VITALS: BP 115/75; TEMP 98; O2SAT 100
[2024-02-11 08:00] VITALS: BP 120/79; TEMP 97.5; O2SAT 95
[2024-02-11 09:17] LABS: BASOPHILS # (AUTO) 0.1 K/uL (0.0-0.2); BASOPHILS % (AUTO) 0.8 % (0.0-2.0); EOSINOPHILS # (AUTO) 2.8 K/uL (0.0-0.7); EOSINOPHILS % (AUTO) 32.9 % (0.0-6.0); HEMATOCRIT 25 % (39-51); HEMOGLOBIN 8.1 g/dL (13.5-17.5); LYMPHOCYTES # (AUTO) 0.8 K/uL (0.8-4.8); LYMPHOCYTES % (AUTO) 9.1 % (20.0-44.0); MEAN CORPUSCULAR HEMOGLOBIN 28 PG (26.0-33.0); MEAN CORPUSCULAR HGB CONC 33 g/dl (31.0-36.0); MEAN CORPUSCULAR VOLUME 85 fL (80-96); MONOCYTES # (AUTO) 0.4 K/uL (0.1-1.30); NEUTROPHILS # (AUTO) 4.5 K/uL (1.8-8.9); NEUTROPHILS % (AUTO) 52.2 % (43.0-81.0); PLATELET COUNT (AUTO) 428 K/uL (150-450); RED BLOOD CELL COUNT(AUTO) 2.92 MIL/uL (4.5-6.0); RED CELL DISTRIBUTION WIDTH 17.7 % (11.5-15.0); WHITE BLOOD COUNT (AUTO) 8.6 K/uL (4.3-11.0)
[2024-02-11 09:27] LABS: CALCIUM, SERUM 9.9 mg/dL (8.5-10.1); CREATININE 0.7 mg/dL (0.6-1.3); POTASSIUM 5.4 mmol/L (3.5-5.1)
[2024-02-11] MEDS: SODIUM POLYSTYRENE SULFONATE 15 G/60 ML BOTTLE PO ONE (10:36)
[2024-02-11 11:31] LABS: EOSINOPHILS % (MANUAL) 32 % (0-4); LYMPHOCYTES % (MANUAL) 7 % (16-48); MONOCYTES % (MANUAL) 4 % (0-11.0); NEUTROPHILS % (MANUAL) 57 (42-76); PLATELET ESTIMATE ADEQUATE
[2024-02-11 16:00] VITALS: BP 117/89; TEMP 97.8; O2SAT 95
[2024-02-11] MEDS: GLUCERNA 1.2 1,000 ML BOTTLE NG PRN (17:12)
[2024-02-11] MEDS ORDERED: IVERMECTIN 3 MG TABLET PO ONE (18:30)
[2024-02-11] MEDS: FLUCONAZOLE (100 MG) 100 MG TABLET PO SCH (18:52)
[2024-02-11 20:00] VITALS: BP 147/60; TEMP 97.7; O2SAT 96
[2024-02-12] MEDS: IVERMECTIN 3 MG TABLET PO ONE (01:37)
[2024-02-12 04:00] VITALS: BP 121/72; TEMP 97.7; O2SAT 94
[2024-02-12 08:00] VITALS: BP 118/72; TEMP 97.7; O2SAT 100
[2024-02-12 08:03] LABS: CALCIUM, SERUM 9.6 mg/dL (8.5-10.1); CREATININE 0.7 mg/dL (0.6-1.3); POTASSIUM 4.7 mmol/L (3.5-5.1)
[2024-02-12] MEDS ORDERED: NEPRO 1,000 ML BOTTLE GT PRN (08:30)
[2024-02-12] MEDS: PROSOURCE / PROSTAT (PYXIS) 30 ML UDC GT SCH (09:02)
[2024-02-12] MEDS ORDERED: FLUC100T8 PO (11:40)
[2024-02-12 16:00] VITALS: BP 114/54; TEMP 98.5; O2SAT 98
[2024-02-13] MEDS ORDERED: VANCOMYCIN 500 MG in IV D5W 100ml IV SCH (09:00)
== END 2024-02-12 18:34 | DRG 663 ==
LOC: ER 09:36 → TELE1 11:33 → MEDSG1 02-02 11:52
PROVIDERS: ADMIT Nurse Practitioner Family; ATTEND Internal Medicine
PROC: 30233H1 Transfusion of Nonautologous Whole Blood into Peripheral Vein, Percutaneous Approach (ICD-10-PCS; principal; 2024-01-31)
PROC: 0JBQ0ZZ Excision of Right Foot Subcutaneous Tissue and Fascia, Open Approach (ICD-10-PCS; 2024-02-08)
PROC: 0JBP0ZZ Excision of Left Lower Leg Subcutaneous Tissue and Fascia, Open Approach (ICD-10-PCS; 2024-02-08)
DX: D64.9 Anemia, unspecified (principal); G93.41 Metabolic encephalopathy; E43 Unspecified severe protein-calorie malnutrition; L89.153 Pressure ulcer of sacral region, stage 3; I31.39 Other pericardial effusion (noninflammatory); N17.9 Acute kidney failure, unspecified; D68.59 Other primary thrombophilia; E86.0 Dehydration; E86.9 Volume depletion, unspecified; R53.2 Functional quadriplegia; E87.0 Hyperosmolality and hypernatremia; J96.10 Chronic respiratory failure, unspecified whether with hypoxia or hypercapnia; E11.22 Type 2 diabetes mellitus with diabetic chronic kidney disease; K21.9 Gastro-esophageal reflux disease without esophagitis; I12.9 Hypertensive chronic kidney disease with stage 1 through stage 4 chronic kidney disease, or unspecified chronic kidney disease; N18.9 Chronic kidney disease, unspecified; Z20.822 Contact with and (suspected) exposure to COVID-19; F20.9 Schizophrenia, unspecified; Z87.820 Personal history of traumatic brain injury; G40.909 Epilepsy, unspecified, not intractable, without status epilepticus; Z74.01 Bed confinement status; R13.10 Dysphagia, unspecified; S91.114A Laceration without foreign body of right lesser toe(s) without damage to nail, initial encounter; X58.XXXA Exposure to other specified factors, initial encounter; Y92.9 Unspecified place or not applicable; Z93.1 Gastrostomy status; Z99.81 Dependence on supplemental oxygen; Z79.51 Long term (current) use of inhaled steroids; Z79.4 Long term (current) use of insulin; Z79.899 Other long term (current) drug therapy; Z79.82 Long term (current) use of aspirin; E88.09 Other disorders of plasma-protein metabolism, not elsewhere classified; B86 Scabies; D75.838 Other thrombocytosis; E87.5 Hyperkalemia; L97.929 Non-pressure chronic ulcer of unspecified part of left lower leg with unspecified severity; N39.0 Urinary tract infection, site not specified; Z87.440 Personal history of urinary (tract) infections; M24.562 Contracture, left knee; M24.561 Contracture, right knee; S01.312A Laceration without foreign body of left ear, initial encounter; S01.311A Laceration without foreign body of right ear, initial encounter; B96.89 Other specified bacterial agents as the cause of diseases classified elsewhere; R78.81 Bacteremia; B95.62 Methicillin resistant Staphylococcus aureus infection as the cause of diseases classified elsewhere
CPT/HCPCS: 36415; 71045-TC; 80048-TC; 80076-TC; 80202-TC; 81001; 82272-TC; 82378; 82607-TC; 82728-TC; 82784; 82962-TC; 83540-TC; 83735-TC; 84100-TC; 84155; 84165; 84443-TC; 85025-TC; 85730-TC; 86140-TC; 86225; 86235; 86334; 86431-TC; 86850-TC; 87040-TC; 87086-TC; 93307-TC; 94762-TC; 94799-TC; A4223; A6403; G0378; J0696; J1815; J1953; J2185; J2916; J3370; J3371; J7030; J7050; J7060; P9016; Q0163

== ENCOUNTER 2024-06-28 10:29 | Inpatient (IN) | payer MEDICAID ==
[~2024-06-28] VITALS: Ht 167.6 cm; Wt 49.9 kg
[~2024-06-28 10:29] MED LIST changes: +AMIN30LI66 GT; -CEFE2FRO IV; +Colchicine PO; -DIPH25TA25 GT; +FERR325T28 GT; +FLUC100T8 PO; +INDO-13 PO; +NUT.237L30 GT; +THERAHONEY TP; +TRIA80CR12 TP; +VANC1PLA9 IV; +XEROFORM TP
[2024-06-28 11:25] LABS: BASOPHILS # (AUTO) 0.2 K/uL (0.0-0.2); BASOPHILS % (AUTO) 0.8 % (0.0-2.0); EOSINOPHILS # (AUTO) 8.6 K/uL (0.0-0.7); HEMATOCRIT 27 % (39-51); LYMPHOCYTES # (AUTO) 1.2 K/uL (0.8-4.8); LYMPHOCYTES % (AUTO) 5.9 % (20.0-44.0); MEAN CORPUSCULAR HEMOGLOBIN 30 PG (26.0-33.0); MEAN CORPUSCULAR HGB CONC 34 g/dl (31.0-36.0); MEAN CORPUSCULAR VOLUME 87 fL (80-96); MONOCYTES # (AUTO) 1.2 K/uL (0.1-1.30); MONOCYTES % (AUTO) 5.8 % (2.0-12.0); NEUTROPHILS # (AUTO) 9.8 K/uL (1.8-8.9); NEUTROPHILS % (AUTO) 46.6 % (43.0-81.0); PLATELET COUNT (AUTO) 298 K/uL (150-450); RED BLOOD CELL COUNT(AUTO) 3.05 MIL/uL (4.5-6.0); RED CELL DISTRIBUTION WIDTH 16.4 % (11.5-15.0); WHITE BLOOD COUNT (AUTO) 21.1 K/uL (4.3-11.0)
[2024-06-28] MEDS: CEFEPIME 1 GM in IV D5W 50 ML IV ONE (11:28)
[2024-06-28 11:31] LABS: APPEARANCE,URINE TURBID (CLEAR); BILIRUBIN,URINE NEGATIVE (NEGATIVE); BLOOD, URINE 1+ Ery/uL (NEGATIVE); COLOR,URINE YELLOW (YELLOW); KETONES,URINE NEGATIVE (NEGATIVE); LEUKOCYTE ESTERASE ,URINE 1+ (NEGATIVE); NITRITE, URINE NEGATIVE (NEGATIVE); PH,URINE 5.5 (5.0-8.0); PROTEIN,URINE 3+ mg/dl (NEGATIVE); UGLUCOSE NEGATIVE (NEGATIVE); UROBILINOGEN,URINE 0.2 EU/dL (0.2)
[2024-06-28 11:32] LABS: EOSINOPHILS % (AUTO) 40.9 % (0.0-6.0)
[2024-06-28 11:35] LABS: INR 1.01 (0.91-1.10); PARTIAL THROMBOPLASTIN TIME 28.4 SEC (24.3-34.3); PROTHROMBIN TIME 10.7 SECS (9.2-11.1)
[2024-06-28 11:36] LABS: CALCIUM, SERUM 11.3 mg/dL (8.5-10.1); CREATININE 1.7 mg/dL (0.6-1.3); POTASSIUM 3.6 mmol/L (3.5-5.1)
[2024-06-28 11:39] LABS: ADD URINE CULTURE YES; BACTERIA,URINE Moderate /HPF (None Seen); SQUAMOUS EPITHELIAL CELL,UR Few /HPF (None Seen)
[2024-06-28 11:41] LABS: ALBUMIN 1.8 g/dL (3.4-5.0); BILIRUBIN,DIRECT 0.1 mg/dL (0.0-0.2); BILIRUBIN,TOTAL 0.2 mg/dL (0.2-1.0); TOTAL PROTEIN, SERUM 8.6 g/dL (6.4-8.2)
[2024-06-28] MEDS: VANCOMYCIN 1 GM in IV D5W 250 ML IV ONE (11:46)
[2024-06-28] MEDS: IV NS 0.9% 1,000 ML BAG IV ONE (11:50)
[2024-06-28] MEDS ORDERED: MAGNESIUM HYDROXIDE 30 ML UDC PO PRN (12:30)
[2024-06-28] MEDS ORDERED: ACETAMINOPHEN 325 MG TABLET PO PRN (12:30)
[2024-06-28] MEDS ORDERED: MAG HYDROX/AL HYDROX/SIMETH 30 ML UDC PO PRN (12:30)
[2024-06-28] MEDS ORDERED: ONDANSETRON HCL/PF 4 MG/2 ML VIAL IVP PRN (12:30)
[2024-06-28] MEDS ORDERED: Z GUARD REMEDY 4 OZ OINT TP PRN (12:30)
[2024-06-28] MEDS ORDERED: ZINC220C6 GT (12:37)
[2024-06-28] MEDS ORDERED: LABE200T5 GT (12:37)
[2024-06-28] MEDS ORDERED: COLL30OI TP (12:37)
[2024-06-28] MEDS ORDERED: PANT40SU2 GT (12:37)
[2024-06-28] MEDS ORDERED: LACT1CAP89 GT (12:37)
[2024-06-28] MEDS ORDERED: ONDA-97 GT (12:37)
[2024-06-28] MEDS ORDERED: CRAN3875 GT (12:37)
[2024-06-28] MEDS ORDERED: DIPH25TA27 GT (12:37)
[2024-06-28] MEDS ORDERED: SODI10PO GT (12:37)
[2024-06-28] MEDS ORDERED: AMLO-213 GT (12:37)
[2024-06-28] MEDS ORDERED: GABA-532 GT (12:37)
[2024-06-28] MEDS ORDERED: GLUC1KIT IM (12:37)
[2024-06-28] MEDS ORDERED: CRAN425C6 GT (12:37)
[2024-06-28] MEDS ORDERED: DOCU100C36 GT (12:37)
[2024-06-28] MEDS ORDERED: IPRA3AMP23 NEB ×2 (12:37)
[2024-06-28] MEDS ORDERED: HONE44PA TP (12:37)
[2024-06-28] MEDS ORDERED: QUET25TA GT (12:37)
[2024-06-28] MEDS ORDERED: ACET325T53 GT ×2 (12:37)
[2024-06-28] MEDS ORDERED: SEVE0.8P GT (12:37)
[2024-06-28] MEDS ORDERED: CRAN300T GT (12:37)
[2024-06-28] MEDS ORDERED: NUT.237L67 GT (12:37)
[2024-06-28] MEDS ORDERED: BUME0.5T5 GT (12:37)
[2024-06-28] MEDS ORDERED: ENOXAPARIN SODIUM 40 MG/0.4 ML DISP.SYRIN SQ ONE (12:43)
[2024-06-28] MEDS: ENOXAPARIN SODIUM 40 MG/0.4 ML DISP.SYRIN SQ SCH (12:45)
[2024-06-28] MEDS ORDERED: CEFEPIME 2 GM in IV D5W 100 ML IV SCH (13:00)
[2024-06-28 13:33] LABS: BASOPHILS % (MANUAL) 0 % (0.0-2.0); EOSINOPHILS % (MANUAL) 38 % (0-4); LYMPHOCYTES % (MANUAL) 8 % (16-48); MONOCYTES % (MANUAL) 6 % (0-11.0); NEUTROPHILS % (MANUAL) 48 (42-76)
[2024-06-28 13:34] LABS: ANISOCYTOSIS 1+; PLATELET ESTIMATE ADEQUATE; STOMATOCYTES 1+
[2024-06-28 17:07] VITALS: BP 128/67; TEMP 97.2; O2SAT 99
[2024-06-28 20:00] VITALS: BP 141/71; TEMP 97.5; O2SAT 100
[2024-06-28] MEDS: IV NS 0.9% 1,000 ML IV PRN (20:36)
[2024-06-28] MEDS: CEFEPIME 2 GM in IV D5W 100 ML IV SCH (23:17)
[2024-06-28] MEDS: VANCOMYCIN 750 MG in IV D5W 250 ML IV SCH (23:57)
[2024-06-29] VITALS: BP 140/69; TEMP 98.1; O2SAT 100
[2024-06-29 04:00] VITALS: BP 146/73; TEMP 98.5; O2SAT 100
[2024-06-29 07:14] LABS: BASOPHILS # (AUTO) 0.4 K/uL (0.0-0.2); BASOPHILS % (AUTO) 2.4 % (0.0-2.0); HEMATOCRIT 26 % (39-51); HEMOGLOBIN 8.6 g/dL (13.5-17.5); LYMPHOCYTES # (AUTO) 0.7 K/uL (0.8-4.8); LYMPHOCYTES % (AUTO) 3.8 % (20.0-44.0); MEAN CORPUSCULAR HEMOGLOBIN 29 PG (26.0-33.0); MEAN CORPUSCULAR HGB CONC 33 g/dl (31.0-36.0); MEAN CORPUSCULAR VOLUME 88 fL (80-96); MONOCYTES % (AUTO) 5.8 % (2.0-12.0); NEUTROPHILS # (AUTO) 7.8 K/uL (1.8-8.9); NEUTROPHILS % (AUTO) 43.5 % (43.0-81.0); PLATELET COUNT (AUTO) 293 K/uL (150-450); RED BLOOD CELL COUNT(AUTO) 2.94 MIL/uL (4.5-6.0); RED CELL DISTRIBUTION WIDTH 16.5 % (11.5-15.0)
[2024-06-29 07:25] LABS: CALCIUM, SERUM 10.4 mg/dL (8.5-10.1); CREATININE 1.5 mg/dL (0.6-1.3); MAGNESIUM 1.8 mg/dL (1.8-2.4); PHOSPHORUS 3.6 mg/dL (2.5-4.9); POTASSIUM 3.7 mmol/L (3.5-5.1)
[2024-06-29 07:29] LABS: EOSINOPHILS % (AUTO) 44.5 % (0.0-6.0)
[2024-06-29 08:00] VITALS: BP 150/80; TEMP 98; O2SAT 100
[2024-06-29 10:59] LABS: EOSINOPHILS % (MANUAL) 51 % (0-4); LYMPHOCYTES % (MANUAL) 1 % (16-48); MONOCYTES % (MANUAL) 2 % (0-11.0); NEUTROPHILS % (MANUAL) 46 (42-76); PLATELET ESTIMATE ADEQUATE
[2024-06-29 11:00] LABS: ANISOCYTOSIS 1+; STOMATOCYTES 2+
[2024-06-29] MEDS ORDERED: Medication Not On Formulary EA (Melatonin 5 MG) GT SCH (11:00)
[2024-06-29] MEDS: AMLODIPINE BESYLATE 10 MG TABLET GT SCH (11:36)
[2024-06-29] MEDS: LEVETIRACETAM SOL (5 ML) 100 MG/ML UDC GT SCH (11:36)
[2024-06-29] MEDS: SEVELAMER CARBONATE 800 MG POWD.PACK GT SCH (11:37)
[2024-06-29 12:00] VITALS: BP 160/80; TEMP 97.5; O2SAT 99
[2024-06-29] MEDS: GABAPENTIN 100 MG CAPSULE GT SCH (13:03)
[2024-06-29] MEDS: NEPRO 1,000 ML BOTTLE GT SCH (13:13)
[2024-06-29] MEDS ORDERED: MAGNESIUM HYDROXIDE 30 ML UDC GT PRN (13:14)
[2024-06-29] MEDS ORDERED: MAG HYDROX/AL HYDROX/SIMETH 30 ML UDC GT PRN (13:14)
[2024-06-29] MEDS ORDERED: ALBUTEROL FS 2.5 MG/3 ML VIAL.NEB NEB PRN (13:30)
[2024-06-29] MEDS ORDERED: IPRATROPIUM NEB FS 0.5 MG/2.5 ML AMPUL.NEB NEB PRN (13:30)
[2024-06-29] MEDS: ALBUTEROL FS 2.5 MG/3 ML VIAL.NEB NEB SCH (14:05)
[2024-06-29] MEDS: IPRATROPIUM NEB FS 0.5 MG/2.5 ML AMPUL.NEB NEB SCH (14:05)
[2024-06-29 16:00] VITALS: BP 158/79; TEMP 97.9; O2SAT 100
[2024-06-29] MEDS: LABETALOL HCL (100MG) 100 MG TABLET GT SCH (16:51)
[2024-06-29] MEDS: QUETIAPINE FUMARATE 25 MG TABLET GT SCH (16:52)
[2024-06-29] MEDS: INSULIN GLARGINE, 100 UNIT/ML CARTRIDGE SQ SCH (17:41)
[2024-06-29 20:00] VITALS: BP 150/74; TEMP 99.5; O2SAT 100
[2024-06-30] VITALS: BP 149/72; TEMP 98.6; O2SAT 100
[2024-06-30 05:00] VITALS: BP 153/70; TEMP 98.3; O2SAT 100
[2024-06-30 08:00] VITALS: BP 146/79; TEMP 97.8; O2SAT 100
[2024-06-30] MEDS: DOCUSATE SODIUM LIQ 100 MG/10 ML UDC GT SCH (08:48)
[2024-06-30] MEDS: PANTOPRAZOLE 40 MG/PACK PACK GT SCH (08:48)
[2024-06-30] MEDS: ZINC SULFATE 220 MG CAPSULE GT SCH (08:49)
[2024-06-30 11:22] LABS: BASOPHILS # (AUTO) 0.3 K/uL (0.0-0.2); BASOPHILS % (AUTO) 1.9 % (0.0-2.0); EOSINOPHILS # (AUTO) 6.6 K/uL (0.0-0.7); HEMATOCRIT 25 % (39-51); HEMOGLOBIN 8.3 g/dL (13.5-17.5); LYMPHOCYTES % (AUTO) 5.5 % (20.0-44.0); MEAN CORPUSCULAR HEMOGLOBIN 29 PG (26.0-33.0); MEAN CORPUSCULAR HGB CONC 33 g/dl (31.0-36.0); MEAN CORPUSCULAR VOLUME 87 fL (80-96); MONOCYTES # (AUTO) 1.2 K/uL (0.1-1.30); MONOCYTES % (AUTO) 6.6 % (2.0-12.0); NEUTROPHILS # (AUTO) 8.5 K/uL (1.8-8.9); NEUTROPHILS % (AUTO) 48.3 % (43.0-81.0); PLATELET COUNT (AUTO) 262 K/uL (150-450); RED BLOOD CELL COUNT(AUTO) 2.89 MIL/uL (4.5-6.0); RED CELL DISTRIBUTION WIDTH 16.4 % (11.5-15.0); WHITE BLOOD COUNT (AUTO) 17.6 K/uL (4.3-11.0)
[2024-06-30 11:26] LABS: EOSINOPHILS % (AUTO) 37.7 % (0.0-6.0)
[2024-06-30 12:00] VITALS: BP 140/60; TEMP 97.8; O2SAT 100
[2024-06-30 12:32] LABS: EOSINOPHILS % (MANUAL) 44 % (0-4); LYMPHOCYTES % (MANUAL) 4 % (16-48); MONOCYTES % (MANUAL) 5 % (0-11.0); NEUTROPHILS % (MANUAL) 47 (42-76); PLATELET ESTIMATE ADEQUATE
[2024-06-30 12:33] LABS: ANISOCYTOSIS 1+; STOMATOCYTES 1+
[2024-06-30 13:24] LABS: BASOPHILS # (AUTO) 0.4 K/uL (0.0-0.2); BASOPHILS % (AUTO) 2.2 % (0.0-2.0); EOSINOPHILS # (AUTO) 7.1 K/uL (0.0-0.7); HEMATOCRIT 25 % (39-51); HEMOGLOBIN 8.4 g/dL (13.5-17.5); LYMPHOCYTES % (AUTO) 5.7 % (20.0-44.0); MEAN CORPUSCULAR HEMOGLOBIN 30 PG (26.0-33.0); MEAN CORPUSCULAR HGB CONC 34 g/dl (31.0-36.0); MEAN CORPUSCULAR VOLUME 87 fL (80-96); MONOCYTES # (AUTO) 1.2 K/uL (0.1-1.30); MONOCYTES % (AUTO) 6.5 % (2.0-12.0); NEUTROPHILS # (AUTO) 8.3 K/uL (1.8-8.9); NEUTROPHILS % (AUTO) 46.1 % (43.0-81.0); PLATELET COUNT (AUTO) 262 K/uL (150-450); RED BLOOD CELL COUNT(AUTO) 2.82 MIL/uL (4.5-6.0); RED CELL DISTRIBUTION WIDTH 16.3 % (11.5-15.0)
[2024-06-30 13:39] LABS: ALBUMIN 1.5 g/dL (3.4-5.0); BILIRUBIN,TOTAL 0.2 mg/dL (0.2-1.0); CALCIUM, SERUM 10.4 mg/dL (8.5-10.1); CREATININE 1.3 mg/dL (0.6-1.3); MAGNESIUM 1.8 mg/dL (1.8-2.4); PHOSPHORUS 2.9 mg/dL (2.5-4.9); POTASSIUM 3.1 mmol/L (3.5-5.1); TOTAL PROTEIN, SERUM 7.7 g/dL (6.4-8.2)
[2024-06-30 14:01] LABS: EOSINOPHILS % (AUTO) 39.5 % (0.0-6.0)
[2024-06-30] MEDS ORDERED: MEROPENEM 500 MG in IV NS 0.9% 50 ML IV SCH (15:30)
[2024-06-30 16:00] VITALS: BP 125/60; TEMP 97.9; O2SAT 100
[2024-06-30] MEDS: MEROPENEM 1 G in IV NS 0.9% 100 ML IV SCH (17:22)
[2024-06-30] MEDS: POTASSIUM CHLORIDE 20 MEQ POWDER PACKET GT SCH (17:25)
[2024-06-30] MEDS: NEPRO 1,000 ML BOTTLE GT SCH (17:43)
[2024-06-30 20:14] VITALS: BP 146/73; TEMP 99.3; O2SAT 100
[2024-06-30] MEDS: MUPIROCIN OINT 2% 22 GM TUBE NS SCH (21:20)
[2024-06-30] MEDS: VANCOMYCIN 500 MG in IV D5W 100ml IV SCH (23:39)
[2024-07-01] VITALS (7 sets, daily range): BP systolic 146–163; BP diastolic 69–76; TEMP 97.8–98.8; O2SAT 100
[2024-07-01] MEDS: NEOMY SULF/BACITRAC ZN/POLY 15 GM TUBE TP SCH (10:27)
[2024-07-01] MEDS: DAKINS QUARTER STRENGTH (0.125%) 480 ML BOTTLE TOP SCH (10:27)
[2024-07-01] MEDS: THERAHONEY GEL 1.5 OZ TUBE TP SCH (12:10)
[2024-07-01] MEDS: POTASSIUM CHLORIDE 20 MEQ POWDER PACKET GT ONE (13:24)
[2024-07-01 16:16] LABS: CALCIUM, SERUM 10.8 mg/dL (8.5-10.1); CREATININE 1.1 mg/dL (0.6-1.3); POTASSIUM 4.1 mmol/L (3.5-5.1)
[2024-07-02] VITALS: BP 142/68; TEMP 98.1; O2SAT 100
[2024-07-02] MEDS: VANCOMYCIN 750 MG in IV D5W 250 ML IV SCH (02:29)
[2024-07-02 04:00] VITALS: BP 151/72; TEMP 98.7; O2SAT 100
[2024-07-02 08:00] VITALS: BP 158/75; TEMP 98.6; O2SAT 100
[2024-07-02 11:21] LABS: CALCIUM, SERUM 10.2 mg/dL (8.5-10.1); CREATININE 1.2 mg/dL (0.6-1.3); POTASSIUM 3.7 mmol/L (3.5-5.1)
[2024-07-02 12:00] VITALS: BP 151/73; TEMP 98.2; O2SAT 100
[2024-07-02] MEDS: FREE WATER VIA TUBE FEEDING GT SCH (12:00)
[2024-07-02 12:06] LABS: *SPE A/G RATIO 0.4 (0.7-1.7); *SPE ALBUMIN 2.1 g/dL (2.9-4.4); *SPE ALPHA-1-GLOBULIN 0.3 g/dL (0.0-0.4); *SPE ALPHA-2-GLOBULIN 0.9 g/dL (0.4-1.0); *SPE GLOBULIN, TOTAL 4.7 g/dL (2.2-3.9); *SPE M-SPIKE Not Observed g/dL (Not Observed); *SPE PROTEIN TOTAL 6.8 g/dL (6.0-8.5); *SPEGAMMA GLOBULIN 2.4 g/dL (0.4-1.8)
[2024-07-02 16:00] VITALS: BP 153/73; TEMP 98.8; O2SAT 100
[2024-07-02 20:00] VITALS: BP 148/70; TEMP 98.1; O2SAT 100
[2024-07-02] MEDS: PERMETHRIN 5% CRM 60 GM TUBE TP ONE (21:34)
[2024-07-02] MEDS: IVERMECTIN 3 MG TABLET PO ONE (21:38)
[2024-07-02 23:06] LABS: PTH, INTACT 7 pg/mL (15-65)
[2024-07-03] VITALS: BP 150/71; TEMP 98.2; O2SAT 100
[2024-07-03 04:00] VITALS: BP 145/77; TEMP 98.2; O2SAT 100
[2024-07-03 08:00] VITALS: BP 156/80; TEMP 97.5; O2SAT 99
[2024-07-03] MEDS: DEXTROSE 50%-WATER 50 ML DISP.SYRIN IVP ONE (08:43)
[2024-07-03 12:00] VITALS: BP 146/78; TEMP 97.7; O2SAT 100
[2024-07-03 16:00] VITALS: BP 141/79; TEMP 97.9; O2SAT 100
[2024-07-03 17:50] LABS: BASOPHILS # (AUTO) 0.1 K/uL (0.0-0.2); BASOPHILS % (AUTO) 0.8 % (0.0-2.0); EOSINOPHILS # (AUTO) 5.4 K/uL (0.0-0.7); HEMATOCRIT 24 % (39-51); HEMOGLOBIN 8.1 g/dL (13.5-17.5); LYMPHOCYTES # (AUTO) 1.1 K/uL (0.8-4.8); LYMPHOCYTES % (AUTO) 7.1 % (20.0-44.0); MEAN CORPUSCULAR HEMOGLOBIN 30 PG (26.0-33.0); MEAN CORPUSCULAR HGB CONC 34 g/dl (31.0-36.0); MEAN CORPUSCULAR VOLUME 88 fL (80-96); MONOCYTES # (AUTO) 0.7 K/uL (0.1-1.30); MONOCYTES % (AUTO) 4.7 % (2.0-12.0); NEUTROPHILS # (AUTO) 7.6 K/uL (1.8-8.9); NEUTROPHILS % (AUTO) 50.9 % (43.0-81.0); PLATELET COUNT (AUTO) 189 K/uL (150-450); RED BLOOD CELL COUNT(AUTO) 2.72 MIL/uL (4.5-6.0); RED CELL DISTRIBUTION WIDTH 16.4 % (11.5-15.0); WHITE BLOOD COUNT (AUTO) 14.9 K/uL (4.3-11.0)
[2024-07-03 17:54] LABS: EOSINOPHILS % (AUTO) 36.5 % (0.0-6.0)
[2024-07-03 17:57] LABS: CALCIUM, SERUM 10.3 mg/dL (8.5-10.1); CREATININE 1.1 mg/dL (0.6-1.3); MAGNESIUM 1.6 mg/dL (1.8-2.4); PHOSPHORUS 2.6 mg/dL (2.5-4.9); POTASSIUM 4.5 mmol/L (3.5-5.1)
[2024-07-03 20:00] VITALS: BP 156/71; TEMP 97.6; O2SAT 100
[2024-07-03 21:55] LABS: ANISOCYTOSIS 1+; EOSINOPHILS % (MANUAL) 36 % (0-4); LYMPHOCYTES % (MANUAL) 6 % (16-48); MONOCYTES % (MANUAL) 1 % (0-11.0); NEUTROPHILS % (MANUAL) 57 (42-76); PLATELET ESTIMATE ADEQUATE
[2024-07-04] VITALS: BP 153/69; TEMP 97.7; O2SAT 100
[2024-07-04 04:00] VITALS: BP 155/67; TEMP 97.9; O2SAT 100
[2024-07-04] MEDS: BLOOD SUGAR DIAGNOSTIC 1 EACH STRIP IN SCH (06:18)
[2024-07-04] MEDS: INSULIN REGULAR, HUMAN 100 UNIT/ML 3 ML VIAL SQ PRN (06:24)
[2024-07-04 08:00] VITALS: BP 162/85; TEMP 97.6; O2SAT 100
[2024-07-04 12:00] VITALS: BP 152/74; TEMP 97.8; O2SAT 100
[2024-07-04 16:00] VITALS: BP 149/71; TEMP 97.8; O2SAT 100
[2024-07-04] MEDS: LIDOCAINE 2%-EPI 1:100,000 30 ML VIAL TP ONE (16:42)
[2024-07-04 17:29] LABS: BASOPHILS # (AUTO) 0.2 K/uL (0.0-0.2); BASOPHILS % (AUTO) 1.2 % (0.0-2.0); EOSINOPHILS # (AUTO) 6.7 K/uL (0.0-0.7); HEMATOCRIT 23 % (39-51); HEMOGLOBIN 7.4 g/dL (13.5-17.5); LYMPHOCYTES # (AUTO) 1.2 K/uL (0.8-4.8); LYMPHOCYTES % (AUTO) 6.6 % (20.0-44.0); MEAN CORPUSCULAR HEMOGLOBIN 29 PG (26.0-33.0); MEAN CORPUSCULAR HGB CONC 33 g/dl (31.0-36.0); MEAN CORPUSCULAR VOLUME 88 fL (80-96); MONOCYTES # (AUTO) 0.7 K/uL (0.1-1.30); MONOCYTES % (AUTO) 3.9 % (2.0-12.0); NEUTROPHILS # (AUTO) 9.6 K/uL (1.8-8.9); NEUTROPHILS % (AUTO) 51.8 % (43.0-81.0); PLATELET COUNT (AUTO) 200 K/uL (150-450); RED BLOOD CELL COUNT(AUTO) 2.56 MIL/uL (4.5-6.0); RED CELL DISTRIBUTION WIDTH 16.2 % (11.5-15.0); WHITE BLOOD COUNT (AUTO) 18.5 K/uL (4.3-11.0)
[2024-07-04 17:45] LABS: CALCIUM, SERUM 10.2 mg/dL (8.5-10.1); CREATININE 1.1 mg/dL (0.6-1.3); POTASSIUM 4.3 mmol/L (3.5-5.1)
[2024-07-04 20:00] VITALS: BP 158/74; TEMP 98.2; O2SAT 96
[2024-07-04 20:54] LABS: EOSINOPHILS % (AUTO) 36.5 % (0.0-6.0)
[2024-07-04 21:06] LABS: BAND % (MANUAL) 3 % (0.0-5.0); EOSINOPHILS % (MANUAL) 22 % (0-4); LYMPHOCYTES % (MANUAL) 10 % (16-48); MONOCYTES % (MANUAL) 5 % (0-11.0); NEUTROPHILS % (MANUAL) 60 (42-76)
[2024-07-04 21:07] LABS: ANISOCYTOSIS 1+; PLATELET ESTIMATE ADEQUATE; ROULEAUX 1+
[2024-07-05] VITALS: BP 147/74; TEMP 98.4; O2SAT 98
[2024-07-05] MEDS: DEXTROSE 50%-WATER 50 ML DISP.SYRIN IV PRN (00:13)
[2024-07-05 04:00] VITALS: BP 145/77; TEMP 98.4; O2SAT 98
[2024-07-05 08:00] VITALS: BP 150/80; TEMP 98.3; O2SAT 98
[2024-07-05 11:58] LABS: CALCIUM, SERUM 10.3 mg/dL (8.5-10.1); CREATININE 1.1 mg/dL (0.6-1.3); POTASSIUM 3.9 mmol/L (3.5-5.1)
[2024-07-05 12:00] VITALS: BP 135/71; TEMP 98.4; O2SAT 98
[2024-07-05 14:56] LABS: BASOPHILS # (AUTO) 0.2 K/uL (0.0-0.2); BASOPHILS % (AUTO) 0.8 % (0.0-2.0); LYMPHOCYTES # (AUTO) 1.1 K/uL (0.8-4.8); LYMPHOCYTES % (AUTO) 6.2 % (20.0-44.0); MEAN CORPUSCULAR HEMOGLOBIN 30 PG (26.0-33.0); MEAN CORPUSCULAR HGB CONC 33 g/dl (31.0-36.0); MEAN CORPUSCULAR VOLUME 88 fL (80-96); MONOCYTES # (AUTO) 0.9 K/uL (0.1-1.30); MONOCYTES % (AUTO) 5.3 % (2.0-12.0); NEUTROPHILS # (AUTO) 9.5 K/uL (1.8-8.9); NEUTROPHILS % (AUTO) 53.7 % (43.0-81.0); PLATELET COUNT (AUTO) 170 K/uL (150-450); RED BLOOD CELL COUNT(AUTO) 2.19 MIL/uL (4.5-6.0); RED CELL DISTRIBUTION WIDTH 16.7 % (11.5-15.0); WHITE BLOOD COUNT (AUTO) 17.7 K/uL (4.3-11.0)
[2024-07-05 15:00] LABS: HEMATOCRIT 19 % (39-51); HEMOGLOBIN 6.5 g/dL (13.5-17.5)
[2024-07-05 15:49] LABS: ANISOCYTOSIS 1+; EOSINOPHILS % (MANUAL) 40 % (0-4); LYMPHOCYTES % (MANUAL) 9 % (16-48); MONOCYTES % (MANUAL) 1 % (0-11.0); NEUTROPHILS % (MANUAL) 50 (42-76); PLATELET ESTIMATE ADEQUATE
[2024-07-05 16:00] VITALS: BP 130/71; TEMP 99.8; O2SAT 98
[2024-07-05] MEDS: SILVER NITRATE APPLICATOR 1 EA BOX TP ONE (16:46)
[2024-07-05] MEDS: GLUCERNA 1.2 1,000 ML BOTTLE NG PRN (17:53)
[2024-07-05 20:00] VITALS: BP 132/70; TEMP 98.4; O2SAT 98
[2024-07-06] VITALS (10 sets, daily range): BP systolic 111–142; BP diastolic 60–86; TEMP 97.9–99.3; O2SAT 98–100
[2024-07-06] MEDS: ACETAMINOPHEN 650 MG/20.3 ML UDC GT PRN (01:57)
[2024-07-06 11:28] LABS: BASOPHILS # (AUTO) 0.2 K/uL (0.0-0.2); BASOPHILS % (AUTO) 0.9 % (0.0-2.0); LYMPHOCYTES # (AUTO) 1.2 K/uL (0.8-4.8); LYMPHOCYTES % (AUTO) 6.6 % (20.0-44.0); MEAN CORPUSCULAR HEMOGLOBIN 29 PG (26.0-33.0); MEAN CORPUSCULAR HGB CONC 33 g/dl (31.0-36.0); MEAN CORPUSCULAR VOLUME 88 fL (80-96); MONOCYTES % (AUTO) 5.4 % (2.0-12.0); NEUTROPHILS # (AUTO) 11.2 K/uL (1.8-8.9); NEUTROPHILS % (AUTO) 60.5 % (43.0-81.0); PLATELET COUNT (AUTO) 151 K/uL (150-450); WHITE BLOOD COUNT (AUTO) 18.6 K/uL (4.3-11.0)
[2024-07-06 11:30] LABS: EOSINOPHILS % (AUTO) 26.6 % (0.0-6.0); RED BLOOD CELL COUNT(AUTO) 1.76 MIL/uL (4.5-6.0)
[2024-07-06 11:32] LABS: HEMATOCRIT 16 % (39-51); HEMOGLOBIN 5.2 g/dL (13.5-17.5)
[2024-07-06 12:23] LABS: CREATININE 1.2 mg/dL (0.6-1.3); POTASSIUM 4.4 mmol/L (3.5-5.1)
[2024-07-06 12:42] LABS: ANISOCYTOSIS 1+; EOSINOPHILS % (MANUAL) 41 % (0-4); LYMPHOCYTES % (MANUAL) 8 % (16-48); MONOCYTES % (MANUAL) 6 % (0-11.0); NEUTROPHILS % (MANUAL) 45 (42-76); PLATELET ESTIMATE ADEQUATE; STOMATOCYTES 1+
[2024-07-06 12:45] LABS: CALCIUM, SERUM 10.8 mg/dL (8.5-10.1)
[2024-07-06] MEDS: PANTOPRAZOLE 40 MG VIAL IV SCH (13:28)
[2024-07-06 18:18] LABS: INR 1.03 (0.91-1.10); PARTIAL THROMBOPLASTIN TIME 28.8 SEC (24.3-34.3); PROTHROMBIN TIME 10.9 SECS (9.2-11.1)
[2024-07-07] VITALS: BP 145/74; TEMP 98.5; O2SAT 100
[2024-07-07 04:00] VITALS: BP 128/62; TEMP 98.1; O2SAT 100
[2024-07-07 08:19] VITALS: BP 136/74; TEMP 98.5; O2SAT 100
[2024-07-07 12:31] VITALS: BP 126/62; TEMP 98.1; O2SAT 100
[2024-07-07 12:49] LABS: CALCIUM, SERUM 10.2 mg/dL (8.5-10.1); CREATININE 1.2 mg/dL (0.6-1.3); POTASSIUM 5.1 mmol/L (3.5-5.1)
[2024-07-07 13:07] LABS: BASOPHILS # (AUTO) 0.1 K/uL (0.0-0.2); BASOPHILS % (AUTO) 0.2 % (0.0-2.0); EOSINOPHILS # (AUTO) 3.9 K/uL (0.0-0.7); EOSINOPHILS % (AUTO) 12.5 % (0.0-6.0); HEMATOCRIT 23 % (39-51); HEMOGLOBIN 7.5 g/dL (13.5-17.5); LYMPHOCYTES # (AUTO) 0.8 K/uL (0.8-4.8); LYMPHOCYTES % (AUTO) 2.5 % (20.0-44.0); MEAN CORPUSCULAR HEMOGLOBIN 29 PG (26.0-33.0); MEAN CORPUSCULAR HGB CONC 33 g/dl (31.0-36.0); MEAN CORPUSCULAR VOLUME 87 fL (80-96); MONOCYTES # (AUTO) 0.8 K/uL (0.1-1.30); MONOCYTES % (AUTO) 2.7 % (2.0-12.0); NEUTROPHILS # (AUTO) 25.8 K/uL (1.8-8.9); NEUTROPHILS % (AUTO) 82.1 % (43.0-81.0); PLATELET COUNT (AUTO) 193 K/uL (150-450); RED BLOOD CELL COUNT(AUTO) 2.62 MIL/uL (4.5-6.0); RED CELL DISTRIBUTION WIDTH 16.2 % (11.5-15.0)
[2024-07-07 13:10] LABS: WHITE BLOOD COUNT (AUTO) 31.4 K/uL (4.3-11.0)
[2024-07-07 13:16] LABS: OCCULT BLOOD STOOL NEGATIVE (NEGATIVE)
[2024-07-07 15:24] LABS: LYMPHOCYTES % (MANUAL) 7 % (16-48); MONOCYTES % (MANUAL) 2 % (0-11.0); NEUTROPHILS % (MANUAL) 74 (42-76)
[2024-07-07 15:25] LABS: EOSINOPHILS % (MANUAL) 17 % (0-4); PLATELET ESTIMATE ADEQUATE
[2024-07-07 16:25] VITALS: BP 128/62; TEMP 98.1; O2SAT 100
[2024-07-08 06:09] VITALS: BP 138/70; TEMP 99.1; O2SAT 99
[2024-07-08 08:00] VITALS: BP 136/68; TEMP 98; O2SAT 100
[2024-07-08 08:21] LABS: CALCIUM, SERUM 10.3 mg/dL (8.5-10.1); CREATININE 1.3 mg/dL (0.6-1.3); POTASSIUM 5.1 mmol/L (3.5-5.1)
[2024-07-08 12:00] VITALS: BP 135/75; TEMP 99.1; O2SAT 100
[2024-07-08] MEDS: PANTOPRAZOLE 40 MG/PACK PACK GT SCH (12:40)
[2024-07-08 16:00] VITALS: BP 139/71; TEMP 98.8; O2SAT 100
[2024-07-08 20:00] VITALS: BP 130/70; TEMP 99.5; O2SAT 100
[2024-07-09] VITALS (9 sets, daily range): BP systolic 124–142; BP diastolic 59–87; TEMP 97.9–98.6; O2SAT 100
[2024-07-09] MEDS: INSULIN GLARGINE, 100 UNIT/ML CARTRIDGE SQ SCH (09:00)
[2024-07-09] MEDS ORDERED: INSULIN GLARGINE, 100 UNIT/ML CARTRIDGE SQ SCH (09:00)
[2024-07-09 10:53] LABS: BASOPHILS # (AUTO) 0.1 K/uL (0.0-0.2); EOSINOPHILS # (AUTO) 3.2 K/uL (0.0-0.7); EOSINOPHILS % (AUTO) 28.4 % (0.0-6.0); LYMPHOCYTES % (AUTO) 8.6 % (20.0-44.0); MEAN CORPUSCULAR HEMOGLOBIN 29 PG (26.0-33.0); MEAN CORPUSCULAR HGB CONC 33 g/dl (31.0-36.0); MEAN CORPUSCULAR VOLUME 87 fL (80-96); MONOCYTES # (AUTO) 0.7 K/uL (0.1-1.30); MONOCYTES % (AUTO) 6.4 % (2.0-12.0); NEUTROPHILS # (AUTO) 6.2 K/uL (1.8-8.9); NEUTROPHILS % (AUTO) 55.6 % (43.0-81.0); PLATELET COUNT (AUTO) 247 K/uL (150-450); RED BLOOD CELL COUNT(AUTO) 2.29 MIL/uL (4.5-6.0); RED CELL DISTRIBUTION WIDTH 15.2 % (11.5-15.0); WHITE BLOOD COUNT (AUTO) 11.1 K/uL (4.3-11.0)
[2024-07-09 10:56] LABS: HEMATOCRIT 20 % (39-51); HEMOGLOBIN 6.7 g/dL (13.5-17.5)
[2024-07-09 10:59] LABS: CALCIUM, SERUM 10.1 mg/dL (8.5-10.1); CREATININE 1.3 mg/dL (0.6-1.3); POTASSIUM 5.6 mmol/L (3.5-5.1)
[2024-07-09 11:47] LABS: EOSINOPHILS % (MANUAL) 30 % (0-4); LYMPHOCYTES % (MANUAL) 6 % (16-48); MONOCYTES % (MANUAL) 4 % (0-11.0); NEUTROPHILS % (MANUAL) 60 (42-76); PLATELET ESTIMATE ADEQUATE
[2024-07-09 11:48] LABS: ANISOCYTOSIS 1+
[2024-07-09] MEDS: VANCOMYCIN 500 MG in IV D5W 100ml IV SCH (12:05)
[2024-07-09] MEDS: SODIUM ZIRCONIUM CYCLOSILICATE 10 GM POWD.PACK NG SCH (21:06)
[2024-07-10] VITALS (7 sets, daily range): BP systolic 148–175; BP diastolic 82–93; TEMP 97.6–98.8; O2SAT 99–100
[2024-07-10 07:31] LABS: BASOPHILS # (AUTO) 0.1 K/uL (0.0-0.2); BASOPHILS % (AUTO) 1.2 % (0.0-2.0); EOSINOPHILS # (AUTO) 3.5 K/uL (0.0-0.7); HEMATOCRIT 25 % (39-51); HEMOGLOBIN 8.4 g/dL (13.5-17.5); LYMPHOCYTES # (AUTO) 0.8 K/uL (0.8-4.8); LYMPHOCYTES % (AUTO) 6.6 % (20.0-44.0); MEAN CORPUSCULAR HEMOGLOBIN 29 PG (26.0-33.0); MEAN CORPUSCULAR HGB CONC 34 g/dl (31.0-36.0); MEAN CORPUSCULAR VOLUME 87 fL (80-96); MONOCYTES # (AUTO) 0.8 K/uL (0.1-1.30); MONOCYTES % (AUTO) 6.2 % (2.0-12.0); NEUTROPHILS # (AUTO) 7.3 K/uL (1.8-8.9); NEUTROPHILS % (AUTO) 58.3 % (43.0-81.0); PLATELET COUNT (AUTO) 274 K/uL (150-450); RED BLOOD CELL COUNT(AUTO) 2.87 MIL/uL (4.5-6.0); RED CELL DISTRIBUTION WIDTH 16.1 % (11.5-15.0); WHITE BLOOD COUNT (AUTO) 12.5 K/uL (4.3-11.0)
[2024-07-10 07:33] LABS: EOSINOPHILS % (AUTO) 27.7 % (0.0-6.0)
[2024-07-10] MEDS: IV 1/2NS 1000 ML 1,000 ML IV ONE (07:42)
[2024-07-10 07:58] LABS: CALCIUM, SERUM 10.2 mg/dL (8.5-10.1); CREATININE 1.3 mg/dL (0.6-1.3)
[2024-07-10 08:39] LABS: POTASSIUM 6.3 mmol/L (3.5-5.1)
[2024-07-10] MEDS ORDERED: SODIUM POLYSTYRENE SULF. PWD 15 GM UDC PO ONE (10:00)
[2024-07-10 10:11] LABS: EOSINOPHILS % (MANUAL) 31 % (0-4); LYMPHOCYTES % (MANUAL) 8 % (16-48); MONOCYTES % (MANUAL) 7 % (0-11.0)
[2024-07-10 10:12] LABS: NEUTROPHILS % (MANUAL) 54 (42-76); PLATELET ESTIMATE ADEQUATE
[2024-07-10] MEDS: SODIUM POLYSTYRENE SULFONATE 15 G/60 ML BOTTLE PO ONE (10:16)
[2024-07-10] MEDS: FREE WATER VIA TUBE FEEDING GT SCH (12:00)
[2024-07-11] VITALS: BP 174/97; TEMP 98.2; O2SAT 100
[2024-07-11 04:00] VITALS: BP 168/89; TEMP 98.3; O2SAT 99
[2024-07-11] MEDS: hydrALAZINE HCL IV 20 MG VIAL IV PRN (04:11)
[2024-07-11 08:00] VITALS: BP 156/82; TEMP 98.3; O2SAT 99
[2024-07-11 09:11] LABS: BASOPHILS # (AUTO) 0.1 K/uL (0.0-0.2); BASOPHILS % (AUTO) 0.7 % (0.0-2.0); EOSINOPHILS # (AUTO) 3.7 K/uL (0.0-0.7); HEMATOCRIT 26 % (39-51); HEMOGLOBIN 8.4 g/dL (13.5-17.5); LYMPHOCYTES # (AUTO) 0.7 K/uL (0.8-4.8); LYMPHOCYTES % (AUTO) 5.1 % (20.0-44.0); MEAN CORPUSCULAR HEMOGLOBIN 28 PG (26.0-33.0); MEAN CORPUSCULAR HGB CONC 33 g/dl (31.0-36.0); MEAN CORPUSCULAR VOLUME 86 fL (80-96); MONOCYTES # (AUTO) 0.9 K/uL (0.1-1.30); MONOCYTES % (AUTO) 6.6 % (2.0-12.0); NEUTROPHILS # (AUTO) 8.2 K/uL (1.8-8.9); NEUTROPHILS % (AUTO) 60.5 % (43.0-81.0); PLATELET COUNT (AUTO) 312 K/uL (150-450); RED BLOOD CELL COUNT(AUTO) 2.99 MIL/uL (4.5-6.0); WHITE BLOOD COUNT (AUTO) 13.6 K/uL (4.3-11.0)
[2024-07-11 09:15] LABS: CALCIUM, SERUM 10.2 mg/dL (8.5-10.1); CREATININE 1.3 mg/dL (0.6-1.3); POTASSIUM 6.1 mmol/L (3.5-5.1)
[2024-07-11 09:16] LABS: EOSINOPHILS % (AUTO) 27.1 % (0.0-6.0)
[2024-07-11 09:27] LABS: EOSINOPHILS % (MANUAL) 28 % (0-4); LYMPHOCYTES % (MANUAL) 7 % (16-48); MONOCYTES % (MANUAL) 3 % (0-11.0); NEUTROPHILS % (MANUAL) 62 (42-76); PLATELET ESTIMATE ADEQUATE
[2024-07-11 09:29] LABS: ANISOCYTOSIS 1+
[2024-07-11 09:36] LABS: ALBUMIN 1.8 g/dL (3.4-5.0); BILIRUBIN,DIRECT 0.1 mg/dL (0.0-0.2); BILIRUBIN,TOTAL 0.3 mg/dL (0.2-1.0); PHOSPHORUS 3.9 mg/dL (2.5-4.9); TOTAL PROTEIN, SERUM 8.1 g/dL (6.4-8.2)
[2024-07-11] MEDS ORDERED: SEVELAMER CARBONATE 800 MG POWD.PACK GT SCH (10:02)
[2024-07-11] MEDS: SEVELAMER CARBONATE 800 MG POWD.PACK GT SCH (10:07)
[2024-07-11 12:00] VITALS: BP 147/83; TEMP 98.3; O2SAT 99
[2024-07-11] MEDS ORDERED: NEPRO 1,000 ML BOTTLE GT SCH (12:30)
[2024-07-11] MEDS ORDERED: NEPRO 1,000 ML BOTTLE GT PRN ×2 (12:30→14:30)
[2024-07-11] MEDS: SODIUM POLYSTYRENE SULF. PWD 15 GM UDC PO ONE (12:41)
[2024-07-11] MEDS: SODIUM ZIRCONIUM CYCLOSILICATE 5 GM POWD.PACK PO SCH (14:27)
[2024-07-11] MEDS: IV NS 0.9% 500 ML IV ONE (14:27)
[2024-07-11 16:00] VITALS: BP 140/75; TEMP 98.3; O2SAT 99
[2024-07-11 20:33] VITALS: BP 139/97; TEMP 98.4; O2SAT 99
[2024-07-11] MEDS: NEPRO 1,000 ML BOTTLE GT PRN (21:27)
[2024-07-12 00:05] VITALS: BP 145/78; TEMP 98.3; O2SAT 100
[2024-07-12 06:39] VITALS: BP 140/72; TEMP 98.1; O2SAT 100
[2024-07-12 08:00] VITALS: BP 148/82; TEMP 98.2; O2SAT 100
[2024-07-12 12:00] VITALS: BP 145/79; TEMP 97.9; O2SAT 100
[2024-07-12 16:00] VITALS: BP 143/76; TEMP 98.3; O2SAT 100
[2024-07-12 16:24] LABS: CALCIUM, SERUM 10.3 mg/dL (8.5-10.1); CREATININE 1.1 mg/dL (0.6-1.3); POTASSIUM 4.5 mmol/L (3.5-5.1)
[2024-07-12 20:00] VITALS: BP 155/89; TEMP 98.5; O2SAT 100
[2024-07-13] VITALS: BP 148/80; TEMP 98.4; O2SAT 100
[2024-07-13 04:00] VITALS: BP 145/92; TEMP 98.3; O2SAT 100
[2024-07-13 08:00] VITALS: BP 132/77; TEMP 97.6; O2SAT 100
[2024-07-13 09:00] LABS: CALCIUM, SERUM 10.5 mg/dL (8.5-10.1); POTASSIUM 3.8 mmol/L (3.5-5.1)
[2024-07-13 12:00] VITALS: BP 128/68; TEMP 97.7; O2SAT 100
[2024-07-13 16:00] VITALS: BP 129/73; TEMP 98.1; O2SAT 100
[2024-07-13 20:00] VITALS: BP 131/76; TEMP 98.2; O2SAT 98
[2024-07-14] VITALS: BP 134/75; TEMP 98.2; O2SAT 100
[2024-07-14 04:00] VITALS: BP 149/73; TEMP 98.1; O2SAT 100
[2024-07-14 08:00] VITALS: BP 150/80; TEMP 97.7; O2SAT 100
[2024-07-14 08:19] LABS: CALCIUM, SERUM 10.9 mg/dL (8.5-10.1); CREATININE 0.9 mg/dL (0.6-1.3); POTASSIUM 3.3 mmol/L (3.5-5.1)
[2024-07-14] MEDS: POTASSIUM CHLORIDE 20 MEQ POWDER PACKET GT ONE (09:26)
[2024-07-14 12:00] VITALS: BP 154/80; TEMP 97.5; O2SAT 99
[2024-07-14 16:00] VITALS: BP 143/65; TEMP 97.8; O2SAT 99
[2024-07-14 20:00] VITALS: BP 154/82; TEMP 98; O2SAT 100
[2024-07-15] VITALS (7 sets, daily range): BP systolic 140–157; BP diastolic 74–82; TEMP 97.7–98.2; O2SAT 99–100
[2024-07-15 08:28] LABS: CALCIUM, SERUM 11.1 mg/dL (8.5-10.1); CREATININE 0.8 mg/dL (0.6-1.3)
== END 2024-07-15 19:55 | DRG 951 ==
LOC: ER 10:33 → TELE1 13:45 → TELE 07-14 23:14
PROVIDERS: ADMIT Internal Medicine; ATTEND Internal Medicine
PROC: 5A1955Z Respiratory Ventilation, Greater than 96 Consecutive Hours (ICD-10-PCS; principal; 2024-06-28)
PROC: 0JBQ0ZZ Excision of Right Foot Subcutaneous Tissue and Fascia, Open Approach (ICD-10-PCS; 2024-07-03)
PROC: 0JBN0ZZ Excision of Right Lower Leg Subcutaneous Tissue and Fascia, Open Approach (ICD-10-PCS; 2024-07-03)
PROC: 0JBP0ZZ Excision of Left Lower Leg Subcutaneous Tissue and Fascia, Open Approach (ICD-10-PCS; 2024-07-03)
PROC: 0KBN0ZZ Excision of Right Hip Muscle, Open Approach (ICD-10-PCS; 2024-07-04)
PROC: 30233N1 Transfusion of Nonautologous Red Blood Cells into Peripheral Vein, Percutaneous Approach (ICD-10-PCS; 2024-07-05)
DX: J69.0 Pneumonitis due to inhalation of food and vomit (principal); J96.20 Acute and chronic respiratory failure, unspecified whether with hypoxia or hypercapnia; G93.49 Other encephalopathy; J95.851 Ventilator associated pneumonia; L89.150 Pressure ulcer of sacral region, unstageable; L89.210 Pressure ulcer of right hip, unstageable; G93.1 Anoxic brain damage, not elsewhere classified; R53.2 Functional quadriplegia; E87.4 Mixed disorder of acid-base balance; K92.2 Gastrointestinal hemorrhage, unspecified; J15.69 Pneumonia due to other Gram-negative bacteria; N17.9 Acute kidney failure, unspecified; N39.0 Urinary tract infection, site not specified; Z99.11 Dependence on respirator [ventilator] status; Z93.1 Gastrostomy status; Z93.0 Tracheostomy status; Z16.24 Resistance to multiple antibiotics; M89.8X9 Other specified disorders of bone, unspecified site; M24.562 Contracture, left knee; M24.561 Contracture, right knee; Z89.611 Acquired absence of right leg above knee; Z20.822 Contact with and (suspected) exposure to COVID-19; R13.10 Dysphagia, unspecified; Z87.820 Personal history of traumatic brain injury; Y95 Nosocomial condition; N18.9 Chronic kidney disease, unspecified; I12.9 Hypertensive chronic kidney disease with stage 1 through stage 4 chronic kidney disease, or unspecified chronic kidney disease; E11.22 Type 2 diabetes mellitus with diabetic chronic kidney disease; E11.42 Type 2 diabetes mellitus with diabetic polyneuropathy; K21.9 Gastro-esophageal reflux disease without esophagitis; F20.9 Schizophrenia, unspecified; Z79.51 Long term (current) use of inhaled steroids; Z79.899 Other long term (current) drug therapy; Z79.4 Long term (current) use of insulin; D63.8 Anemia in other chronic diseases classified elsewhere; E86.0 Dehydration; L98.8 Other specified disorders of the skin and subcutaneous tissue; E87.5 Hyperkalemia; E87.6 Hypokalemia; S81.812A Laceration without foreign body, left lower leg, initial encounter; S81.811A Laceration without foreign body, right lower leg, initial encounter; S91.311A Laceration without foreign body, right foot, initial encounter; X58.XXXA Exposure to other specified factors, initial encounter; Y92.9 Unspecified place or not applicable; B86 Scabies
CPT/HCPCS: 31720; 36415; 71045-TC; 74018; 76770-TC; 80048-TC; 80053-TC; 80076-TC; 80202-TC; 81001; 82272-TC; 82550-TC; 82962-TC; 83605-TC; 83735-TC; 83970; 84100-TC; 84155; 84165; 85025-TC; 85385-TC; 85610-TC; 85730-TC; 86850-TC; 87040-TC; 87081-TC; 87086-TC; 94003-TC; 94760-TC; 94762-TC; 94799-TC; 99082-TC; A4223; A4623; A6253; A6403; G0378; J0360; J0692; J1650; J1815; J1953; J2185; J2470; J3370; J3371; J3490; J7030; J7040; J7050; J7060; P9016

== ENCOUNTER 2024-08-27 23:12 | Inpatient (IN) | payer MEDICAID ==
[~2024-08-27] VITALS: Ht 170.2 cm; Wt 39.5 kg
[~2024-08-27 23:12] MED LIST changes: +ACET325T53 GT; +AMLO-213 GT; -AMLO5TAB4 GT; -ASPI-1169 GT; +BUME0.5T5 GT; +COLL30OI TP; +CRAN300T GT; +CRAN3875 GT; -CRAN400C GT; +CRAN425C6 GT; -Colchicine PO; +DIPH25TA27 GT; +DOCU100C36 GT; -FERR325T28 GT; -FLUC100T8 PO; +GABA-532 GT; -GABA250S2 GT; +GLUC1KIT IM; +HONE44PA TP; -INDO-13 PO; -IPRA3AMP22 IH; +IPRA3AMP23 NEB; -LABE100T5 GT; +LABE200T5 GT; +LACT1CAP89 GT; -LANS30CA56 GT; -NUT.237L30 GT; +NUT.237L67 GT; +ONDA-97 GT; +PANT40SU2 GT; -POVI3780 TP; +QUET25TA GT; +SEVE0.8P GT; +SODI10PO GT; -THERAHONEY TP; -VANC1PLA9 IV; -XEROFORM TP; +ZINC220C6 GT; -ZINC50TA69 GT
[2024-08-27 23:58] LABS: BASOPHILS # (AUTO) 0.1 K/uL (0.0-0.2); EOSINOPHILS # (AUTO) 1.9 K/uL (0.0-0.7); EOSINOPHILS % (AUTO) 12.3 % (0.0-6.0); HEMATOCRIT 21 % (39-51); HEMOGLOBIN 7.1 g/dL (13.5-17.5); LYMPHOCYTES # (AUTO) 1.4 K/uL (0.8-4.8); LYMPHOCYTES % (AUTO) 9.5 % (20.0-44.0); MEAN CORPUSCULAR HEMOGLOBIN 30 PG (26.0-33.0); MEAN CORPUSCULAR HGB CONC 34 g/dl (31.0-36.0); MEAN CORPUSCULAR VOLUME 90 fL (80-96); MONOCYTES # (AUTO) 0.4 K/uL (0.1-1.30); MONOCYTES % (AUTO) 2.5 % (2.0-12.0); NEUTROPHILS # (AUTO) 11.4 K/uL (1.8-8.9); NEUTROPHILS % (AUTO) 74.7 % (43.0-81.0); PLATELET COUNT (AUTO) 356 K/uL (150-450); RED BLOOD CELL COUNT(AUTO) 2.35 MIL/uL (4.5-6.0); RED CELL DISTRIBUTION WIDTH 19.7 % (11.5-15.0); WHITE BLOOD COUNT (AUTO) 15.2 K/uL (4.3-11.0)
[2024-08-28] VITALS (10 sets, daily range): BP systolic 124–147; BP diastolic 71–82; TEMP 96.6–98.8; O2SAT 96–100
[2024-08-28 00:11] LABS: INR 1.07 (0.91-1.10); PARTIAL THROMBOPLASTIN TIME 28.7 SEC (24.3-34.3); PROTHROMBIN TIME 11.3 SECS (9.2-11.1)
[2024-08-28 00:21] LABS: CALCIUM, SERUM 9.8 mg/dL (8.5-10.1); CREATININE 1.2 mg/dL (0.6-1.3)
[2024-08-28 00:29] LABS: ALBUMIN 2.1 g/dL (3.4-5.0); BILIRUBIN,DIRECT 0.1 mg/dL (0.0-0.2); BILIRUBIN,TOTAL 0.2 mg/dL (0.2-1.0); TOTAL PROTEIN, SERUM 8.5 g/dL (6.4-8.2)
[2024-08-28 00:31] LABS: POTASSIUM 2.8 mmol/L (3.5-5.1)
[2024-08-28] MEDS: POTASSIUM CL. PREMIX PERIPHER. 50 ML IV SCH (00:55)
[2024-08-28] MEDS ORDERED: NEPRO VAN 237 ML CAN GT SCH (01:00)
[2024-08-28] MEDS ORDERED: ONDANSETRON HCL/PF 4 MG/2 ML VIAL IVP PRN (01:00)
[2024-08-28] MEDS ORDERED: BISACODYL SUPP (10 MG) 10 MG/SUPP.RECT SUPP.RECT RC PRN (01:00)
[2024-08-28] MEDS: DEXTROSE 50%-WATER 50 ML DISP.SYRIN IV ONE (01:01)
[2024-08-28] MEDS: IV D5/0.45 NACL 1,000 ML IV SCH (01:13)
[2024-08-28] MEDS: AMLODIPINE BESYLATE 10 MG TABLET GT SCH (08:27)
[2024-08-28] MEDS: GABAPENTIN 100 MG CAPSULE GT SCH (08:27)
[2024-08-28] MEDS: LEVETIRACETAM SOL (5 ML) 100 MG/ML UDC GT SCH (08:27)
[2024-08-28] MEDS: DOCUSATE SODIUM 100 MG CAPSULE PO SCH (08:27)
[2024-08-28] MEDS: PANTOPRAZOLE 40 MG VIAL IV SCH (08:27)
[2024-08-28] MEDS: QUETIAPINE FUMARATE 25 MG TABLET GT SCH (08:27)
[2024-08-28] MEDS: SEVELAMER CARBONATE 800 MG POWD.PACK GT SCH (08:27)
[2024-08-28] MEDS: ASCORBIC ACID 500 MG TABLET GT SCH (08:27)
[2024-08-28 08:41] LABS: BASOPHILS # (AUTO) 0.1 K/uL (0.0-0.2); BASOPHILS % (AUTO) 0.6 % (0.0-2.0); EOSINOPHILS # (AUTO) 1.9 K/uL (0.0-0.7); EOSINOPHILS % (AUTO) 16.7 % (0.0-6.0); LYMPHOCYTES % (AUTO) 8.6 % (20.0-44.0); MEAN CORPUSCULAR HEMOGLOBIN 30 PG (26.0-33.0); MEAN CORPUSCULAR HGB CONC 34 g/dl (31.0-36.0); MEAN CORPUSCULAR VOLUME 89 fL (80-96); MONOCYTES # (AUTO) 0.3 K/uL (0.1-1.30); MONOCYTES % (AUTO) 2.5 % (2.0-12.0); NEUTROPHILS # (AUTO) 8.3 K/uL (1.8-8.9); NEUTROPHILS % (AUTO) 71.6 % (43.0-81.0); PLATELET COUNT (AUTO) 337 K/uL (150-450); RED BLOOD CELL COUNT(AUTO) 2.27 MIL/uL (4.5-6.0); RED CELL DISTRIBUTION WIDTH 19.5 % (11.5-15.0); WHITE BLOOD COUNT (AUTO) 11.6 K/uL (4.3-11.0)
[2024-08-28] MEDS: CHOLECALCIFEROL 1,000 UNIT TABLET (VIT D3) GT SCH (08:44)
[2024-08-28] MEDS: BUMETANIDE (1 MG) 1 MG TABLET GT SCH (08:44)
[2024-08-28 08:48] LABS: HEMATOCRIT 20 % (39-51); HEMOGLOBIN 6.9 g/dL (13.5-17.5)
[2024-08-28] MEDS ORDERED: Medication Not On Formulary EA (Cran/Vitc/Mannose/Inulin/Brom (Uti-Stat Liquid) 30 ML) GT SCH (09:00)
[2024-08-28] MEDS ORDERED: Medication Not On Formulary EA (Cranberry Extract (Cranberry) 450 MG) GT SCH (09:00)
[2024-08-28] MEDS ORDERED: IPRA0.2S9 IH (09:09)
[2024-08-28] MEDS ORDERED: ALBU2.5V13 NEB (09:09)
[2024-08-28] MEDS ORDERED: INSU100V3 SQ (09:09)
[2024-08-28] MEDS ORDERED: ACID1TAB15 GT (09:09)
[2024-08-28] MEDS ORDERED: ALBU2.5V13 IH (09:09)
[2024-08-28] MEDS ORDERED: MAG30ORA GT (09:09)
[2024-08-28] MEDS ORDERED: MAGN400O6 GT (09:09)
[2024-08-28] MEDS: PROSOURCE / PROSTAT (PYXIS) 30 ML UDC GT SCH (09:38)
[2024-08-28 10:03] LABS: ABG BASE EXCESS 10.6 mmol/L (-2.0-3.0); ABG OXYGEN SATURATION 98.1 % (94.0-98.0); ABG PCO2 40.6 mmHg (35.0-48.0); ABG PH 7.542 (7.350-7.450); ABG PO2 113.9 mmHg (83.0-108.0); ABG TOTAL HEMOGLOBIN 6.2 G/dL (13.5-17.5); COHb 0.3 % (0.5-1.5); MetHb 0.3 % (0.0-1.5); O2Hb 97.5 % (94.0-97.0); PEEP,BG 5 cm H2O; SITE, ABG RIGHT RADIAL; VT, ABG 400 mL
[2024-08-28] MEDS ORDERED: NEPRO 1,000 ML BOTTLE GT PRN (10:30)
[2024-08-28] MEDS ORDERED: DEXTROSE 50%-WATER 50 ML DISP.SYRIN IV PRN (11:00)
[2024-08-28] MEDS: THERAHONEY GEL 1.5 OZ TUBE TP SCH ×2 (11:27→13:39)
[2024-08-28] MEDS: NEPRO 1,000 ML BOTTLE GT PRN (12:05)
[2024-08-28] MEDS: BLOOD SUGAR DIAGNOSTIC 1 EACH STRIP IN SCH (13:00)
[2024-08-28] MEDS: INSULIN REGULAR, HUMAN 100 UNIT/ML 3 ML VIAL SQ PRN (13:01)
[2024-08-28 17:19] LABS: BAND % (MANUAL) 1 % (0.0-5.0); EOSINOPHILS % (MANUAL) 18 % (0-4); LYMPHOCYTES % (MANUAL) 7 % (16-48); MONOCYTES % (MANUAL) 1 % (0-11.0); NEUTROPHILS % (MANUAL) 73 (42-76); PLATELET ESTIMATE ADEQUATE
[2024-08-28 17:20] LABS: ANISOCYTOSIS 1+
[2024-08-28 17:29] LABS: POTASSIUM 3.3 mmol/L (3.5-5.1)
[2024-08-28 17:30] LABS: APPEARANCE,URINE CLEAR (CLEAR); BILIRUBIN,URINE NEGATIVE (NEGATIVE); BLOOD, URINE TRACE-INTA Ery/uL (NEGATIVE); COLOR,URINE YELLOW (YELLOW); KETONES,URINE NEGATIVE (NEGATIVE); LEUKOCYTE ESTERASE ,URINE 2+ (NEGATIVE); NITRITE, URINE POSITIVE (NEGATIVE); PROTEIN,URINE 3+ mg/dl (NEGATIVE); UGLUCOSE NEGATIVE (NEGATIVE); UROBILINOGEN,URINE 0.2 EU/dL (0.2)
[2024-08-28 17:42] LABS: RBC,URINE 0-2 /HPF (0-2)
[2024-08-28 17:43] LABS: ADD URINE CULTURE YES; BACTERIA,URINE Many /HPF (None Seen); SQUAMOUS EPITHELIAL CELL,UR Few /HPF (None Seen); TRIPLE PHOSPHATE CRYSTAL,UR Moderate /HPF (None Seen)
[2024-08-28 17:59] LABS: CREATININE, URINE 32.1 MG/DL (30.0-125.0); URINE TOTAL PROTEIN 471.5 mg/dL (0-11.9)
[2024-08-28 18:53] LABS: EOSINOPHIL,URINE None Seen
[2024-08-28] MEDS: CEFTRIAXONE 1 G in IV D5W 50 ML IV SCH (20:00)
[2024-08-28] MEDS ORDERED: POTASSIUM CHLORIDE 20 MEQ POWDER PACKET ONE (21:35)
[2024-08-28] MEDS: POTASSIUM CHLORIDE 20 MEQ POWDER PACKET GT ONE (21:36)
[2024-08-28] MEDS ORDERED: Medication Not On Formulary EA (Cranberry Extract (Cranberry) 425 MG) GT SCH (22:00)
[2024-08-29] VITALS: BP 126/82; TEMP 99.7; O2SAT 98
[2024-08-29 04:00] VITALS: BP 159/82; TEMP 99.3; O2SAT 98
[2024-08-29 07:56] LABS: BASOPHILS # (AUTO) 0.1 K/uL (0.0-0.2); BASOPHILS % (AUTO) 0.6 % (0.0-2.0); EOSINOPHILS # (AUTO) 2.3 K/uL (0.0-0.7); EOSINOPHILS % (AUTO) 21.7 % (0.0-6.0); HEMATOCRIT 23 % (39-51); HEMOGLOBIN 8.2 g/dL (13.5-17.5); LYMPHOCYTES # (AUTO) 0.9 K/uL (0.8-4.8); LYMPHOCYTES % (AUTO) 8.2 % (20.0-44.0); MEAN CORPUSCULAR HEMOGLOBIN 31 PG (26.0-33.0); MEAN CORPUSCULAR HGB CONC 35 g/dl (31.0-36.0); MEAN CORPUSCULAR VOLUME 89 fL (80-96); MONOCYTES # (AUTO) 0.5 K/uL (0.1-1.30); MONOCYTES % (AUTO) 5.1 % (2.0-12.0); NEUTROPHILS # (AUTO) 6.8 K/uL (1.8-8.9); NEUTROPHILS % (AUTO) 64.4 % (43.0-81.0); PLATELET COUNT (AUTO) 315 K/uL (150-450); RED BLOOD CELL COUNT(AUTO) 2.61 MIL/uL (4.5-6.0); RED CELL DISTRIBUTION WIDTH 18.8 % (11.5-15.0); WHITE BLOOD COUNT (AUTO) 10.6 K/uL (4.3-11.0)
[2024-08-29 08:10] VITALS: BP 124/78; TEMP 98.1; O2SAT 99
[2024-08-29 08:24] LABS: CREATININE 0.8 mg/dL (0.6-1.3); POTASSIUM 3.2 mmol/L (3.5-5.1)
[2024-08-29 09:03] LABS: THYROID STIMULATING HORMONE 1.23 uIU/mL (0.358-3.74)
[2024-08-29] MEDS ORDERED: POTASSIUM CHLORIDE 20 MEQ TAB.PRT.SR PO SCH (12:00)
[2024-08-29 12:10] VITALS: BP 128/63; TEMP 98; O2SAT 99
[2024-08-29] MEDS: POTASSIUM CHLORIDE 20 MEQ POWDER PACKET PO SCH (12:17)
[2024-08-29] MEDS: POLYETHYLENE GLYCOL 3350 17 GM POWD.PACK PO SCH (13:58)
[2024-08-29] MEDS: SENNOSIDES/DOCUSATE SODIUM 1 TAB TABLET GT SCH (13:58)
[2024-08-29 16:05] VITALS: BP 121/67; TEMP 98.2; O2SAT 100
[2024-08-29] MEDS: IV D5/0.45 NACL 1,000 ML IV PRN (17:48)
[2024-08-29 20:00] VITALS: BP 167/88; TEMP 100; O2SAT 100
[2024-08-30] VITALS: BP 146/87; TEMP 98.2; O2SAT 98
[2024-08-30 04:00] VITALS: BP 158/81; TEMP 97.9; O2SAT 98
[2024-08-30 04:48] LABS: BASOPHILS % (MANUAL) 0 % (0.0-2.0); EOSINOPHILS % (MANUAL) 16 % (0-4); LYMPHOCYTES % (MANUAL) 9 % (16-48); MONOCYTES % (MANUAL) 7 % (0-11.0); NEUTROPHILS % (MANUAL) 68 (42-76); PLATELET ESTIMATE ADEQUATE
[2024-08-30 07:17] LABS: BASOPHILS # (AUTO) 0.1 K/uL (0.0-0.2); BASOPHILS % (AUTO) 0.8 % (0.0-2.0); EOSINOPHILS # (AUTO) 2.5 K/uL (0.0-0.7); EOSINOPHILS % (AUTO) 23.3 % (0.0-6.0); HEMATOCRIT 26 % (39-51); HEMOGLOBIN 8.9 g/dL (13.5-17.5); LYMPHOCYTES # (AUTO) 0.8 K/uL (0.8-4.8); LYMPHOCYTES % (AUTO) 7.8 % (20.0-44.0); MEAN CORPUSCULAR HEMOGLOBIN 31 PG (26.0-33.0); MEAN CORPUSCULAR HGB CONC 35 g/dl (31.0-36.0); MEAN CORPUSCULAR VOLUME 90 fL (80-96); MONOCYTES # (AUTO) 0.6 K/uL (0.1-1.30); MONOCYTES % (AUTO) 5.7 % (2.0-12.0); NEUTROPHILS # (AUTO) 6.8 K/uL (1.8-8.9); NEUTROPHILS % (AUTO) 62.4 % (43.0-81.0); PLATELET COUNT (AUTO) 309 K/uL (150-450); RED BLOOD CELL COUNT(AUTO) 2.86 MIL/uL (4.5-6.0); RED CELL DISTRIBUTION WIDTH 17.9 % (11.5-15.0); WHITE BLOOD COUNT (AUTO) 10.9 K/uL (4.3-11.0)
[2024-08-30 07:38] LABS: CALCIUM, SERUM 9.1 mg/dL (8.5-10.1); CREATININE 0.8 mg/dL (0.6-1.3); POTASSIUM 3.7 mmol/L (3.5-5.1)
[2024-08-30 07:39] LABS: MAGNESIUM 1.9 mg/dL (1.8-2.4); PHOSPHORUS 3.5 mg/dL (2.5-4.9)
[2024-08-30 08:00] VITALS: BP 118/71; TEMP 97.6; O2SAT 95
[2024-08-30] MEDS: PANTOPRAZOLE 40 MG/PACK PACK GT SCH (09:45)
[2024-08-30] MEDS: MINERAL OIL 133 ML (PYXIS) 1 EA ENEMA RC ONE (10:06)
[2024-08-30 11:03] LABS: EOSINOPHILS % (MANUAL) 23 % (0-4); LYMPHOCYTES % (MANUAL) 8 % (16-48); MONOCYTES % (MANUAL) 4 % (0-11.0); NEUTROPHILS % (MANUAL) 65 (42-76)
[2024-08-30 12:00] VITALS: BP 121/69; TEMP 97.5; O2SAT 99
[2024-08-30 12:35] LABS: ANISOCYTOSIS 1+; PLATELET ESTIMATE ADEQUATE
[2024-08-30] MEDS: LACTULOSE 10 G/15 ML UDC (PYXIS) GT SCH (12:46)
[2024-08-30 16:00] VITALS: BP 122/78; TEMP 97.8; O2SAT 98
[2024-08-30 20:00] VITALS: BP 122/78; TEMP 97.8; O2SAT 98
[2024-08-31] VITALS: BP 157/86; TEMP 99; O2SAT 99
[2024-08-31 04:00] VITALS: BP 143/84; TEMP 99.5; O2SAT 100
[2024-08-31 07:55] LABS: BASOPHILS # (AUTO) 0.1 K/uL (0.0-0.2); EOSINOPHILS # (AUTO) 2.9 K/uL (0.0-0.7); HEMATOCRIT 23 % (39-51); HEMOGLOBIN 8.2 g/dL (13.5-17.5); LYMPHOCYTES # (AUTO) 0.9 K/uL (0.8-4.8); LYMPHOCYTES % (AUTO) 9.1 % (20.0-44.0); MEAN CORPUSCULAR HEMOGLOBIN 31 PG (26.0-33.0); MEAN CORPUSCULAR HGB CONC 35 g/dl (31.0-36.0); MEAN CORPUSCULAR VOLUME 90 fL (80-96); MONOCYTES # (AUTO) 0.6 K/uL (0.1-1.30); MONOCYTES % (AUTO) 5.7 % (2.0-12.0); NEUTROPHILS # (AUTO) 5.5 K/uL (1.8-8.9); NEUTROPHILS % (AUTO) 55.5 % (43.0-81.0); PLATELET COUNT (AUTO) 315 K/uL (150-450); RED BLOOD CELL COUNT(AUTO) 2.61 MIL/uL (4.5-6.0); RED CELL DISTRIBUTION WIDTH 18.6 % (11.5-15.0)
[2024-08-31 08:00] VITALS: BP 132/81; TEMP 98.1; O2SAT 100
[2024-08-31 08:09] LABS: CALCIUM, SERUM 9.5 mg/dL (8.5-10.1); MAGNESIUM 2.1 mg/dL (1.8-2.4); PHOSPHORUS 4.1 mg/dL (2.5-4.9); POTASSIUM 3.6 mmol/L (3.5-5.1)
[2024-08-31 08:16] LABS: EOSINOPHILS % (AUTO) 28.7 % (0.0-6.0)
[2024-08-31 10:00] LABS: ANISOCYTOSIS 1+; BAND % (MANUAL) 0 % (0.0-5.0); BASOPHILS % (MANUAL) 0 % (0.0-2.0); EOSINOPHILS % (MANUAL) 24 % (0-4); LYMPHOCYTES % (MANUAL) 7 % (16-48); MONOCYTES % (MANUAL) 7 % (0-11.0); NEUTROPHILS % (MANUAL) 62 (42-76); PLATELET ESTIMATE ADEQUATE
[2024-08-31 12:00] VITALS: BP 140/75; TEMP 99; O2SAT 99
[2024-08-31] MEDS: BISACODYL SUPP (10 MG) 10 MG/SUPP.RECT SUPP.RECT RC ONE (12:24)
[2024-08-31 16:00] VITALS: BP 143/119; TEMP 99.3; O2SAT 100
[2024-08-31 16:00] LABS: OCCULT BLOOD STOOL NEGATIVE (NEGATIVE)
[2024-08-31 16:26] LABS: HEMOGLOBIN 8.7 g/dL (13.5-17.5)
[2024-08-31] MEDS: ACETAMINOPHEN 650 MG/SUPP.RECT RC PRN (16:47)
[2024-08-31 20:00] VITALS: BP 159/77; TEMP 99.3; O2SAT 100
[2024-08-31] MEDS: CEFTRIAXONE 1 G VIAL IM SCH (23:49)
[2024-08-31] MEDS: LIDOCAINE HCL/PF 1% 30 ML SDV ONE (23:57)
[2024-08-31] MEDS: LIDOCAINE HCL/PF 1% 30 ML VIAL IM ONE (23:58)
[2024-08-31] MEDS: CEFTRIAXONE 1GM BAG (ER ONLY) 50 ML IV ONE (23:59)
[2024-09-01] VITALS: BP 155/69; TEMP 99; O2SAT 100
[2024-09-01 04:00] VITALS: BP 174/75; TEMP 99.3; O2SAT 100
[2024-09-01 08:00] VITALS: BP 144/89; TEMP 98.2; O2SAT 96
[2024-09-01] MEDS ORDERED: CEFT1VIA15 IV (08:12)
[2024-09-01] MEDS: LISINOPRIL (20MG) 20 MG TABLET GT ONE (08:28)
[2024-09-01 12:00] VITALS: BP 149/77; TEMP 98.8; O2SAT 96
== END 2024-09-01 13:57 | DRG 663 ==
LOC: ER 23:14 → TELE1 08-28 01:27
PROVIDERS: ADMIT Nurse Practitioner Family; ATTEND Nurse Practitioner Family
PROC: 5A1955Z Respiratory Ventilation, Greater than 96 Consecutive Hours (ICD-10-PCS; principal; 2024-08-28)
PROC: 30233N1 Transfusion of Nonautologous Red Blood Cells into Peripheral Vein, Percutaneous Approach (ICD-10-PCS; 2024-08-28)
PROC: 0JBQ0ZZ Excision of Right Foot Subcutaneous Tissue and Fascia, Open Approach (ICD-10-PCS; 2024-08-29)
DX: D62 Acute posthemorrhagic anemia (principal); G93.49 Other encephalopathy; L89.153 Pressure ulcer of sacral region, stage 3; L89.123 Pressure ulcer of left upper back, stage 3; E44.0 Moderate protein-calorie malnutrition; L89.313 Pressure ulcer of right buttock, stage 3; L89.223 Pressure ulcer of left hip, stage 3; E87.3 Alkalosis; L89.613 Pressure ulcer of right heel, stage 3; R53.2 Functional quadriplegia; J96.10 Chronic respiratory failure, unspecified whether with hypoxia or hypercapnia; Z99.11 Dependence on respirator [ventilator] status; Z93.0 Tracheostomy status; E88.09 Other disorders of plasma-protein metabolism, not elsewhere classified; B35.0 Tinea barbae and tinea capitis; E11.22 Type 2 diabetes mellitus with diabetic chronic kidney disease; I12.9 Hypertensive chronic kidney disease with stage 1 through stage 4 chronic kidney disease, or unspecified chronic kidney disease; K21.9 Gastro-esophageal reflux disease without esophagitis; N18.9 Chronic kidney disease, unspecified; N39.0 Urinary tract infection, site not specified; Z93.1 Gastrostomy status; R13.10 Dysphagia, unspecified; Z87.820 Personal history of traumatic brain injury; R56.9 Unspecified convulsions; Z87.01 Personal history of pneumonia (recurrent); E11.40 Type 2 diabetes mellitus with diabetic neuropathy, unspecified; Z79.51 Long term (current) use of inhaled steroids; Z79.4 Long term (current) use of insulin; D72.829 Elevated white blood cell count, unspecified; F20.9 Schizophrenia, unspecified; Z79.899 Other long term (current) drug therapy; E87.6 Hypokalemia; M24.562 Contracture, left knee; M24.561 Contracture, right knee; B96.89 Other specified bacterial agents as the cause of diseases classified elsewhere
CPT/HCPCS: 31720; 36415; 36600; 71045-TC; 80048-TC; 80076-TC; 81001; 82272-TC; 82570-TC; 82607-TC; 82728-TC; 82803-TC; 82962-TC; 83540-TC; 83690-TC; 83735-TC; 84100-TC; 84300-TC; 84439-TC; 84443-TC; 85025-TC; 85027-TC; 85730-TC; 86850-TC; 87086-TC; 94003-TC; 94760-TC; 94762-TC; 94799-TC; A4223; A6253; A6403; G0378; J0696; J1815; J1953; J2470; J3480; J3490; J7040; J7050; J7060; P9016

== ENCOUNTER 2025-03-13 21:55 | Inpatient (IN) | payer MEDICAID ==
[~2025-03-13] VITALS: Ht 162.6 cm; Wt 51.7 kg
[~2025-03-13 21:55] MED LIST changes: +ACID1TAB15 GT; +ALBU2.5V13 IH; +ALBU2.5V13 NEB; +CEFT1VIA15 IV; -CRAN425C6 GT; -HONE44PA TP; +INSU100V3 SQ; -INSU100V42 SQ; +IPRA0.2S9 IH; -IPRA3AMP23 NEB; -LACT1CAP89 GT; +MAG30ORA GT; +MAGN400O6 GT; -PETR113O TP; -SODI10PO GT
[2025-03-13] MEDS: VANCOMYCIN 1 GM in IV D5W 250 ML IV ONE (22:30)
[2025-03-13] MEDS ORDERED: DEXTROSE 50%-WATER 50 ML DISP.SYRIN ONE (22:46)
[2025-03-13] MEDS: DEXTROSE 50%-WATER 50 ML DISP.SYRIN IVP ONE (22:50)
[2025-03-13 22:53] LABS: PLATELET COUNT (AUTO) 330 K/uL (150-450); RED BLOOD CELL COUNT(AUTO) 2.64 MIL/uL (4.5-6.0); RED CELL DISTRIBUTION WIDTH 14.5 % (11.5-15.0); WHITE BLOOD COUNT (AUTO) 26.5 K/uL (4.3-11.0)
[2025-03-13 23:00] LABS: CALCIUM, SERUM 10.2 mg/dL (8.5-10.1); CREATININE 2.1 mg/dL (0.6-1.3); SODIUM SERUM 132 mmol/L (136-145)
[2025-03-13] MEDS: CEFEPIME 1 GM in IV D5W 50 ML IV ONE (23:00)
[2025-03-13] MEDS: IV NS 0.9% 1,000 ML BAG IV ONE (23:00)
[2025-03-13 23:02] LABS: UREA NITROGEN, BLOOD 91 mg/dL (7-18)
[2025-03-13 23:02] LABS: APPEARANCE,URINE CLOUDY (CLEAR); BLOOD, URINE NEGATIVE Ery/uL (NEGATIVE); LEUKOCYTE ESTERASE ,URINE 2+ (NEGATIVE); NITRITE, URINE NEGATIVE (NEGATIVE); UGLUCOSE NEGATIVE (NEGATIVE)
[2025-03-13] MEDS ORDERED: VANCOMYCIN 1 GM /D5W 250 ML PB IV ONE (23:02)
[2025-03-13] MEDS ORDERED: CEFEPIME 1 GM VIAL ONE (23:02)
[2025-03-13 23:06] LABS: ASPARTATE AMINOTRANSFERASE 18 U/L (15-37); TOTAL PROTEIN, SERUM 8.3 g/dL (6.4-8.2)
[2025-03-13 23:07] LABS: INR 0.93 (0.91-1.10)
[2025-03-13 23:08] LABS: LACTIC ACID 0.9 mmol/L (0.4-2.0)
[2025-03-13 23:33] LABS: ADD URINE CULTURE YES; SQUAMOUS EPITHELIAL CELL,UR Few /HPF (None Seen); TRIPLE PHOSPHATE CRYSTAL,UR Many /HPF (None Seen)
[2025-03-13 23:34] LABS: URINE AMORPHOUS PHOSPHATES Many /HPF (None Seen)
[2025-03-14] MEDS ORDERED: Z GUARD REMEDY 4 OZ OINT TP PRN (01:00)
[2025-03-14] MEDS ORDERED: DEXTROSE 50%-WATER 50 ML DISP.SYRIN IV PRN (01:00)
[2025-03-14] MEDS ORDERED: ALBUTEROL FS 2.5 MG/3 ML VIAL.NEB NEB PRN (01:00)
[2025-03-14] MEDS ORDERED: ONDANSETRON HCL/PF 4 MG/2 ML VIAL IVP PRN (01:00)
[2025-03-14] MEDS ORDERED: DOSING PER PHARMACY-VANCOMYCIN IV XX PRN (01:00)
[2025-03-14] MEDS ORDERED: INSULIN REGULAR, HUMAN 100 UNIT/ML 3 ML VIAL SQ PRN (01:00)
[2025-03-14] MEDS ORDERED: BISACODYL SUPP (10 MG) 10 MG/SUPP.RECT SUPP.RECT RC PRN (01:30)
[2025-03-14] MEDS ORDERED: ACETAMINOPHEN 325 MG TABLET PO PRN (02:30)
[2025-03-14 04:00] VITALS: BP 123/79; TEMP 97.4; O2SAT 100
[2025-03-14] MEDS: DEXTROSE 50%-WATER 50 ML DISP.SYRIN IV PRN (06:45)
[2025-03-14 06:56] LABS: PHOSPHORUS 4.0 mg/dL (2.5-4.9)
[2025-03-14 07:12] LABS: CALCIUM, SERUM 9.2 mg/dL (8.5-10.1); CREATININE 1.9 mg/dL (0.6-1.3); SODIUM SERUM 134.0 mmol/L (136-145)
[2025-03-14 07:15] LABS: UREA NITROGEN, BLOOD 86.0 mg/dL (7-18)
[2025-03-14] MEDS ORDERED: BLOOD SUGAR DIAGNOSTIC 1 EACH STRIP IN SCH (07:30)
[2025-03-14 08:00] VITALS: BP 123/72; TEMP 97.7; O2SAT 100
[2025-03-14] MEDS: SEVELAMER CARBONATE 800 MG POWD.PACK GT SCH (08:41)
[2025-03-14] MEDS: GABAPENTIN 100 MG CAPSULE GT SCH (08:41)
[2025-03-14] MEDS: HEPARIN SODIUM, PORCINE 5000 UNITS/1 ML VIAL SQ SCH (08:42)
[2025-03-14] MEDS: PANTOPRAZOLE 40 MG/PACK PACK GT SCH (08:42)
[2025-03-14] MEDS: QUETIAPINE FUMARATE 25 MG TABLET GT SCH (08:42)
[2025-03-14] MEDS: LEVETIRACETAM SOL (5 ML) 100 MG/ML UDC PO SCH (08:42)
[2025-03-14] MEDS ORDERED: CHLO473M5 MM (08:45)
[2025-03-14] MEDS ORDERED: NEPRO 1.8 GT (08:45)
[2025-03-14] MEDS ORDERED: INSU100I30 SQ (08:45)
[2025-03-14] MEDS ORDERED: IPRA0.2S9 IH (08:45)
[2025-03-14] MEDS: CEFEPIME 2 GM in IV D5W 100 ML IV SCH (10:40)
[2025-03-14] MEDS: THERAHONEY GEL 1.5 OZ TUBE TP SCH (11:52)
[2025-03-14] MEDS: IV NS 0.9% 1,000 ML IV SCH (11:57)
[2025-03-14 12:00] VITALS: BP 139/75; TEMP 98.1; O2SAT 100
[2025-03-14] MEDS: BLOOD SUGAR DIAGNOSTIC 1 EACH STRIP IN SCH (12:34)
[2025-03-14 16:00] VITALS: BP 130/36; TEMP 98.6; O2SAT 100
[2025-03-14] MEDS: ARGININE/GLUTAMINE/CALCIUM BMB 1 EACH POWD.PACK PEG SCH (18:00)
[2025-03-14] MEDS: GLUCERNA 1.2 1,000 ML BOTTLE PEG PRN (18:03)
[2025-03-14 20:00] VITALS: BP 125/76; TEMP 99.3; O2SAT 100
[2025-03-14] MEDS ORDERED: VANCOMYCIN 1 GM in IV D5W 250ml IV SCH (22:00)
[2025-03-14] MEDS ORDERED: VANCOMYCIN 750 MG in IV D5W 250 ML IV SCH (22:00)
[2025-03-15] VITALS: BP 129/74; TEMP 99.1; O2SAT 100
[2025-03-15 04:00] VITALS: BP 131/82; TEMP 99.5; O2SAT 98
[2025-03-15] MEDS: INSULIN REGULAR, HUMAN 100 UNIT/ML 3 ML VIAL SQ PRN (05:34)
[2025-03-15 07:43] LABS: PLATELET COUNT (AUTO) 326 K/uL (150-450); RED BLOOD CELL COUNT(AUTO) 2.64 MIL/uL (4.5-6.0); RED CELL DISTRIBUTION WIDTH 14.5 % (11.5-15.0); WHITE BLOOD COUNT (AUTO) 8.0 K/uL (4.3-11.0)
[2025-03-15 08:00] VITALS: BP 124/74; TEMP 99.5; O2SAT 98
[2025-03-15 08:02] LABS: ASPARTATE AMINOTRANSFERASE 27.0 U/L (15-37); CALCIUM, SERUM 9.6 mg/dL (8.5-10.1); CREATININE 1.8 mg/dL (0.6-1.3); PHOSPHORUS 2.8 mg/dL (2.5-4.9); SODIUM SERUM 146.0 mmol/L (136-145); TOTAL PROTEIN, SERUM 7.8 g/dL (6.4-8.2); UREA NITROGEN, BLOOD 55.0 mg/dL (7-18)
[2025-03-15 08:07] LABS: CREATINE KINASE, TOTAL 108.0 U/L (39-308)
[2025-03-15 12:00] VITALS: BP 140/79; TEMP 99
[2025-03-15 12:27] LABS: EOSINOPHILS % (MANUAL) 15 % (0-4); LYMPHOCYTES % (MANUAL) 8 % (16-48); MONOCYTES % (MANUAL) 6 % (0-11.0); NEUTROPHILS % (MANUAL) 71 (42-76)
[2025-03-15 12:28] LABS: PLATELET ESTIMATE ADEQUATE
[2025-03-15 16:00] VITALS: BP 156/76; TEMP 99; O2SAT 100
[2025-03-15 20:00] VITALS: BP 122/92; TEMP 99.3; O2SAT 100
[2025-03-16] VITALS: BP 146/97; TEMP 98.2; O2SAT 100
[2025-03-16 04:00] VITALS: BP 109/94; TEMP 98.4; O2SAT 100
[2025-03-16 07:08] LABS: PLATELET COUNT (AUTO) 324 K/uL (150-450); RED BLOOD CELL COUNT(AUTO) 2.57 MIL/uL (4.5-6.0); RED CELL DISTRIBUTION WIDTH 14.8 % (11.5-15.0); WHITE BLOOD COUNT (AUTO) 6.6 K/uL (4.3-11.0)
[2025-03-16 07:16] LABS: CALCIUM, SERUM 9.6 mg/dL (8.5-10.1); CREATININE 1.5 mg/dL (0.6-1.3); SODIUM SERUM 148.0 mmol/L (136-145); UREA NITROGEN, BLOOD 39.0 mg/dL (7-18)
[2025-03-16 08:00] VITALS: BP 145/84; TEMP 98.4; O2SAT 100
[2025-03-16 09:10] LABS: ABG BASE EXCESS -0.8 mmol/L (-2.0-3.0); ABG OXYGEN SATURATION 98.2 % (94.0-98.0); ABG PCO2 35.1 mmHg (35.0-48.0); ABG PH 7.437 (7.350-7.450); ABG PO2 118.8 mmHg (83.0-108.0); ABG TOTAL HEMOGLOBIN 8.9 G/dL (13.5-17.5); FRACTIONATED INSPIRED OXYGEN 30.0 %; PEEP,BG 5 cm H2O; SET RATE, BG 12.0; SITE, ABG RIGHT RADIAL; VT, ABG 400 mL
[2025-03-16 10:28] LABS: EOSINOPHILS % (MANUAL) 17 % (0-4); LYMPHOCYTES % (MANUAL) 9 % (16-48); MONOCYTES % (MANUAL) 12 % (0-11.0); NEUTROPHILS % (MANUAL) 62 (42-76); PLATELET ESTIMATE ADEQUATE
[2025-03-16 12:00] VITALS: BP 153/78; TEMP 97.7; O2SAT 97
[2025-03-16] MEDS: ACETAMINOPHEN 650 MG/20.3 ML UDC NG PRN (15:46)
[2025-03-16 16:00] VITALS: BP 160/83; TEMP 99.3; O2SAT 100
[2025-03-16 20:00] VITALS: BP 146/82; TEMP 97.9; O2SAT 98
[2025-03-17] VITALS: BP 142/85; TEMP 97.9; O2SAT 99
[2025-03-17 04:00] VITALS: BP 143/72; TEMP 97.9; O2SAT 97
[2025-03-17 06:47] LABS: PLATELET COUNT (AUTO) 141 K/uL (150-450); RED BLOOD CELL COUNT(AUTO) 2.54 MIL/uL (4.5-6.0); RED CELL DISTRIBUTION WIDTH 16.0 % (11.5-15.0); WHITE BLOOD COUNT (AUTO) 6.5 K/uL (4.3-11.0)
[2025-03-17 07:07] LABS: PTH, INTACT 18 pg/mL (15-65)
[2025-03-17 07:16] LABS: CALCIUM, SERUM 9.8 mg/dL (8.5-10.1); CREATININE 1.8 mg/dL (0.6-1.3); SODIUM SERUM 149.0 mmol/L (136-145); UREA NITROGEN, BLOOD 51.0 mg/dL (7-18)
[2025-03-17 08:00] VITALS: BP 140/85; TEMP 102; O2SAT 100
[2025-03-17] MEDS: IV 1/2NS 1000 ML 1,000 ML IV PRN (09:42)
[2025-03-17] MEDS: INSULIN GLARGINE, 100 UNIT/ML CARTRIDGE SQ SCH (10:21)
[2025-03-17] MEDS: FREE WATER VIA TUBE FEEDING GT SCH (11:18)
[2025-03-17 12:00] VITALS: BP 136/79; TEMP 99.6; O2SAT 100
[2025-03-17 16:00] VITALS: BP 144/82; TEMP 99.5; O2SAT 100
[2025-03-17 20:00] VITALS: BP 146/74; TEMP 98.8; O2SAT 100
[2025-03-17] MEDS: MEROPENEM 1 G in IV NS 0.9% 100 ML IV SCH (22:31)
[2025-03-18] VITALS: BP 158/81; TEMP 98.8; O2SAT 100
[2025-03-18 04:00] VITALS: BP 149/91; TEMP 98.8; O2SAT 100
[2025-03-18 07:28] LABS: CALCIUM, SERUM 10.4 mg/dL (8.5-10.1); CREATININE 1.8 mg/dL (0.6-1.3); SODIUM SERUM 153.0 mmol/L (136-145); UREA NITROGEN, BLOOD 55.0 mg/dL (7-18)
[2025-03-18 07:33] LABS: PLATELET COUNT (AUTO) 335 K/uL (150-450); RED BLOOD CELL COUNT(AUTO) 2.60 MIL/uL (4.5-6.0); RED CELL DISTRIBUTION WIDTH 14.9 % (11.5-15.0); WHITE BLOOD COUNT (AUTO) 7.6 K/uL (4.3-11.0)
[2025-03-18 08:00] VITALS: BP 152/72; TEMP 99.9; O2SAT 100
[2025-03-18] MEDS: IV D5W 1,000 ML IV PRN (11:30)
[2025-03-18 12:00] VITALS: BP 144/70; TEMP 99.9; O2SAT 100
[2025-03-18 16:00] VITALS: BP 150/67; TEMP 99; O2SAT 100
[2025-03-18 20:00] VITALS: BP 155/98; TEMP 98.9; O2SAT 99
[2025-03-19] VITALS: BP 130/88; TEMP 98.8; O2SAT 98
[2025-03-19 04:00] VITALS: BP 105/90; TEMP 98.6; O2SAT 97
[2025-03-19 08:00] VITALS: BP 144/91; TEMP 98.1; O2SAT 100
[2025-03-19 08:09] LABS: PLATELET COUNT (AUTO) 184 K/uL (150-450); RED BLOOD CELL COUNT(AUTO) 2.67 MIL/uL (4.5-6.0); RED CELL DISTRIBUTION WIDTH 15.3 % (11.5-15.0); WHITE BLOOD COUNT (AUTO) 8.2 K/uL (4.3-11.0)
[2025-03-19 08:18] LABS: CALCIUM, SERUM 9.6 mg/dL (8.5-10.1); CREATININE 1.7 mg/dL (0.6-1.3); SODIUM SERUM 141.0 mmol/L (136-145); UREA NITROGEN, BLOOD 50.0 mg/dL (7-18)
[2025-03-19] MEDS: LEVETIRACETAM SOL (5 ML) 100 MG/ML UDC GT SCH (08:50)
[2025-03-19 12:00] VITALS: BP 149/78; TEMP 97.9; O2SAT 100
== END 2025-03-19 15:54 | DRG 380 ==
LOC: ER 21:58 → TELE1 03-14 00:50
PROVIDERS: ADMIT Internal Medicine; ATTEND Internal Medicine
PROC: 5A1955Z Respiratory Ventilation, Greater than 96 Consecutive Hours (ICD-10-PCS; principal; 2025-03-14)
DX: E11.649 Type 2 diabetes mellitus with hypoglycemia without coma (principal); L89.223 Pressure ulcer of left hip, stage 3; L89.213 Pressure ulcer of right hip, stage 3; N17.0 Acute kidney failure with tubular necrosis; G93.41 Metabolic encephalopathy; R53.2 Functional quadriplegia; Z99.11 Dependence on respirator [ventilator] status; R13.10 Dysphagia, unspecified; N39.0 Urinary tract infection, site not specified; J96.10 Chronic respiratory failure, unspecified whether with hypoxia or hypercapnia; I12.9 Hypertensive chronic kidney disease with stage 1 through stage 4 chronic kidney disease, or unspecified chronic kidney disease; N18.9 Chronic kidney disease, unspecified; E11.22 Type 2 diabetes mellitus with diabetic chronic kidney disease; Z20.822 Contact with and (suspected) exposure to COVID-19; Z87.820 Personal history of traumatic brain injury; Z93.0 Tracheostomy status; Z93.1 Gastrostomy status; Z87.440 Personal history of urinary (tract) infections; Z79.899 Other long term (current) drug therapy; K21.9 Gastro-esophageal reflux disease without esophagitis; Z79.51 Long term (current) use of inhaled steroids; Z79.4 Long term (current) use of insulin; L98.9 Disorder of the skin and subcutaneous tissue, unspecified; F20.9 Schizophrenia, unspecified; E86.0 Dehydration; E87.0 Hyperosmolality and hypernatremia; E11.40 Type 2 diabetes mellitus with diabetic neuropathy, unspecified; E88.09 Other disorders of plasma-protein metabolism, not elsewhere classified; G40.909 Epilepsy, unspecified, not intractable, without status epilepticus; Z16.12 Extended spectrum beta lactamase (ESBL) resistance; Z16.24 Resistance to multiple antibiotics; Z78.9 Other specified health status; D64.9 Anemia, unspecified; E87.1 Hypo-osmolality and hyponatremia; E11.65 Type 2 diabetes mellitus with hyperglycemia; R64 Cachexia; E86.9 Volume depletion, unspecified; M89.8X9 Other specified disorders of bone, unspecified site; M24.562 Contracture, left knee; M24.561 Contracture, right knee; L90.5 Scar conditions and fibrosis of skin
CPT/HCPCS: 31720; 36415; 36600; 71045-TC; 76770-TC; 80048-TC; 80053-TC; 80076-TC; 81001; 82550-TC; 82803-TC; 82962-TC; 83605-TC; 83735-TC; 83970; 84100-TC; 84155; 84165; 84484-TC; 85025-TC; 85027-TC; 85730-TC; 87040-TC; 87081-TC; 87086-TC; 87186-TC; 94002-TC; 94003-TC; 94760-TC; 94762-TC; 94799-TC; 99082-TC; A4223; A6213; A6253; A6254; G0378; J0692; J1644; J1815; J1953; J2185; J3373; J3374; J3490; J7030; J7060; J7070

== ENCOUNTER 2025-04-09 11:12 | Inpatient (IN) | payer MEDICAID ==
[~2025-04-09] VITALS: Ht 167.6 cm; Wt 60.3 kg
[2025-04-09] VITALS (7 sets, daily range): BP systolic 147–159; BP diastolic 52–72; TEMP 98.4–99.3; O2SAT 98
[~2025-04-09 11:12] MED LIST changes: -ACID1TAB15 GT; -BUME0.5T5 GT; -CEFT1VIA15 IV; +CHLO473M5 MM; +INSU100I30 SQ; +NEPRO 1.8 GT; -NUT.237L67 GT; -TRIA80CR12 TP; -ZINC220C6 GT
[2025-04-09 12:30] LABS: APPEARANCE,URINE SLIGHTLY CLOUDY (CLEAR); BLOOD, URINE Trace-lysed Ery/uL (NEGATIVE); LEUKOCYTE ESTERASE ,URINE Negative (NEGATIVE); NITRITE, URINE NEGATIVE (NEGATIVE); UGLUCOSE Negative (NEGATIVE)
[2025-04-09 12:34] LABS: ADD URINE CULTURE YES; SQUAMOUS EPITHELIAL CELL,UR None Seen /HPF (None Seen); YEAST,URINE Many /HPF (None Seen)
[2025-04-09 13:17] LABS: PLATELET COUNT (AUTO) 333 K/uL (150-450); RED BLOOD CELL COUNT(AUTO) 2.26 MIL/uL (4.5-6.0); RED CELL DISTRIBUTION WIDTH 14.5 % (11.5-15.0); WHITE BLOOD COUNT (AUTO) 21.0 K/uL (4.3-11.0)
[2025-04-09 13:23] LABS: CALCIUM, SERUM 9.7 mg/dL (8.5-10.1); CREATININE 1.8 mg/dL (0.6-1.3); SODIUM SERUM 126.0 mmol/L (136-145)
[2025-04-09 13:25] LABS: UREA NITROGEN, BLOOD 85.0 mg/dL (7-18)
[2025-04-09 13:29] LABS: ASPARTATE AMINOTRANSFERASE 36.0 U/L (15-37); TOTAL PROTEIN, SERUM 7.9 g/dL (6.4-8.2)
[2025-04-09 13:38] LABS: LACTIC ACID 0.9 mmol/L (0.4-2.0)
[2025-04-09 13:53] LABS: OCCULT BLOOD STOOL POSITIVE (NEGATIVE)
[2025-04-09] MEDS: PIPERACILLIN /TAZOBACTAM 3.375 G in IV D5W 50 ML IV ONE (14:00)
[2025-04-09] MEDS ORDERED: PIPERACI/TAZO 3.375GM/D5W 50ML PB IV ONE (14:03)
[2025-04-09 14:06] LABS: INR 0.95 (0.91-1.10)
[2025-04-09] MEDS: VANCOMYCIN 1 GM in IV D5W 250 ML IV ONE (14:30)
[2025-04-09] MEDS ORDERED: MAGNESIUM HYDROXIDE 30 ML UDC PO PRN (15:30)
[2025-04-09] MEDS ORDERED: IPRATROPIUM NEB FS 0.5 MG/2.5 ML AMPUL.NEB NEB PRN (15:30)
[2025-04-09] MEDS ORDERED: DOSING PER PHARMACY-VANCOMYCIN IV XX PRN (15:30)
[2025-04-09] MEDS ORDERED: DOSING PER PHARMACY-ZOSYN IV 1 EA EA XX PRN (15:30)
[2025-04-09] MEDS ORDERED: ONDANSETRON HCL/PF 4 MG/2 ML VIAL IVP PRN (15:30)
[2025-04-09] MEDS ORDERED: ALBUTEROL FS 2.5 MG/3 ML VIAL.NEB NEB PRN (15:30)
[2025-04-09] MEDS ORDERED: Z GUARD REMEDY 4 OZ OINT TP PRN (15:30)
[2025-04-09] MEDS ORDERED: DEXTROSE 50%-WATER 50 ML DISP.SYRIN IV PRN (15:30)
[2025-04-09 15:53] LABS: LYMPHOCYTES % (MANUAL) 4 % (16-48); NEUTROPHILS % (MANUAL) 85 (42-76)
[2025-04-09 15:54] LABS: EOSINOPHILS % (MANUAL) 8 % (0-4); MONOCYTES % (MANUAL) 3 % (0-11.0); PLATELET ESTIMATE ADEQUATE
[2025-04-09] MEDS: BLOOD SUGAR DIAGNOSTIC 1 EACH STRIP IN SCH (19:01)
[2025-04-09] MEDS: INSULIN REGULAR, HUMAN 100 UNIT/ML 3 ML VIAL SQ PRN (19:03)
[2025-04-09] MEDS: ACETAMINOPHEN 650 MG/SUPP.RECT RC PRN (19:26)
[2025-04-09] MEDS: LEVETIRACETAM (500MG) 500 MG in IV NS 0.9% 100 ML IV SCH (19:28)
[2025-04-09] MEDS: IV NS 0.9% 1,000 ML IV PRN (20:40)
[2025-04-09] MEDS: PANTOPRAZOLE 40 MG VIAL IV SCH (21:22)
[2025-04-09] MEDS: PIPERACILLIN /TAZOBACTAM 3.375 G in IV D5W 100 ML IV SCH (21:22)
[2025-04-10] VITALS (8 sets, daily range): BP systolic 61–156; BP diastolic 52–99; TEMP 97.1–99.8; O2SAT 96–100
[2025-04-10] MEDS: VANCOMYCIN 750 MG in IV D5W 250 ML IV SCH (02:20)
[2025-04-10 07:32] LABS: PLATELET COUNT (AUTO) 338 K/uL (150-450); RED BLOOD CELL COUNT(AUTO) 2.91 MIL/uL (4.5-6.0); RED CELL DISTRIBUTION WIDTH 14.5 % (11.5-15.0); WHITE BLOOD COUNT (AUTO) 13.7 K/uL (4.3-11.0)
[2025-04-10 07:42] LABS: INR 1.01 (0.91-1.10)
[2025-04-10 07:47] LABS: CALCIUM, SERUM 9.5 mg/dL (8.5-10.1); CREATININE 1.9 mg/dL (0.6-1.3); PHOSPHORUS 4.0 mg/dL (2.5-4.9); SODIUM SERUM 130.0 mmol/L (136-145); UREA NITROGEN, BLOOD 74.0 mg/dL (7-18)
[2025-04-10] MEDS ORDERED: ANESTHESIA TRAY IN PYXIS 1 EA TRAY MC ONE ×2 (09:09→10:40)
[2025-04-10] MEDS ORDERED: NEPRO 1,000 ML BOTTLE GT PRN (10:00)
[2025-04-10] MEDS: POTASSIUM CL. PREMIX PERIPHER. 50 ML IV SCH (10:10)
[2025-04-10] MEDS: GLUCERNA 1.2 1,000 ML BOTTLE NG SCH (12:37)
[2025-04-10 15:55] LABS: APPEARANCE,URINE SLIGHTLY CLOUDY (CLEAR); BLOOD, URINE 2+ Ery/uL (NEGATIVE); LEUKOCYTE ESTERASE ,URINE 2+ (NEGATIVE); NITRITE, URINE POSITIVE (NEGATIVE); UGLUCOSE NEGATIVE (NEGATIVE)
[2025-04-10 16:01] LABS: CREATININE, URINE 49.0 MG/DL (30.0-125.0); URINE SODIUM, RANDOM 22.0 mmol/l (40-220)
[2025-04-10 16:13] LABS: URINE TOTAL PROTEIN 521.1 mg/dL (0-11.9)
[2025-04-10 16:19] LABS: YEAST,URINE Many /HPF (None Seen)
[2025-04-10 16:20] LABS: ADD URINE CULTURE YES; SQUAMOUS EPITHELIAL CELL,UR Few /HPF (None Seen)
[2025-04-10 16:52] LABS: EOSINOPHIL,URINE None Seen
[2025-04-11] VITALS (7 sets, daily range): BP systolic 90–153; BP diastolic 39–89; TEMP 97.5–99.2; O2SAT 97–100
[2025-04-11 07:03] LABS: PLATELET COUNT (AUTO) 375 K/uL (150-450); RED BLOOD CELL COUNT(AUTO) 2.94 MIL/uL (4.5-6.0); RED CELL DISTRIBUTION WIDTH 14.5 % (11.5-15.0); WHITE BLOOD COUNT (AUTO) 12.0 K/uL (4.3-11.0)
[2025-04-11 07:15] LABS: ASPARTATE AMINOTRANSFERASE 19.0 U/L (15-37); CALCIUM, SERUM 9.4 mg/dL (8.5-10.1); CREATININE 1.7 mg/dL (0.6-1.3); PHOSPHORUS 3.6 mg/dL (2.5-4.9); SODIUM SERUM 139.0 mmol/L (136-145); TOTAL PROTEIN, SERUM 7.9 g/dL (6.4-8.2); UREA NITROGEN, BLOOD 54.0 mg/dL (7-18)
[2025-04-11 07:16] LABS: CREATINE KINASE, TOTAL 344.0 U/L (39-308)
[2025-04-11] MEDS ORDERED: DEXTROSE 50%-WATER 50 ML DISP.SYRIN IV PRN (13:30)
[2025-04-11] MEDS ORDERED: INSULIN REGULAR, HUMAN 100 UNIT/ML 3 ML VIAL SQ PRN (13:30)
[2025-04-11] MEDS: LEVETIRACETAM SOL (5 ML) 100 MG/ML UDC GT SCH (15:38)
[2025-04-11] MEDS: BLOOD SUGAR DIAGNOSTIC 1 EACH STRIP IN SCH (18:22)
[2025-04-12] VITALS: BP 151/71; TEMP 98.8; O2SAT 100
[2025-04-12] MEDS: VANCOMYCIN 750 MG in IV D5W 250 ML IV SCH (03:00)
[2025-04-12 04:00] VITALS: BP 148/59; TEMP 98.5; O2SAT 99
[2025-04-12 05:08] LABS: PTH, INTACT 24 pg/mL (15-65)
[2025-04-12 08:00] VITALS: BP 157/89; TEMP 99.4; O2SAT 99
[2025-04-12 10:41] LABS: PLATELET COUNT (AUTO) 424 K/uL (150-450); RED BLOOD CELL COUNT(AUTO) 2.81 MIL/uL (4.5-6.0); RED CELL DISTRIBUTION WIDTH 14.7 % (11.5-15.0); WHITE BLOOD COUNT (AUTO) 11.8 K/uL (4.3-11.0)
[2025-04-12 10:53] LABS: CALCIUM, SERUM 9.3 mg/dL (8.5-10.1); CREATININE 1.7 mg/dL (0.6-1.3); SODIUM SERUM 149.0 mmol/L (136-145); UREA NITROGEN, BLOOD 41.0 mg/dL (7-18)
[2025-04-12 12:00] VITALS: BP 156/76; TEMP 99.7; O2SAT 99
[2025-04-12] MEDS: ACETAMINOPHEN 650 MG/20.3 ML UDC NG PRN (12:33)
[2025-04-12 16:00] VITALS: BP 132/60; TEMP 99.1; O2SAT 99
[2025-04-12 20:00] VITALS: BP 150/70; TEMP 98.8; O2SAT 100
[2025-04-13] VITALS (7 sets, daily range): BP systolic 120–176; BP diastolic 57–98; TEMP 98.2–101.8; O2SAT 100
[2025-04-13 10:29] LABS: PLATELET COUNT (AUTO) 457 K/uL (150-450); RED BLOOD CELL COUNT(AUTO) 2.81 MIL/uL (4.5-6.0); RED CELL DISTRIBUTION WIDTH 14.8 % (11.5-15.0); WHITE BLOOD COUNT (AUTO) 8.8 K/uL (4.3-11.0)
[2025-04-13 10:37] LABS: CALCIUM, SERUM 9.3 mg/dL (8.5-10.1); CREATININE 1.9 mg/dL (0.6-1.3); SODIUM SERUM 153.0 mmol/L (136-145); UREA NITROGEN, BLOOD 40.0 mg/dL (7-18)
[2025-04-13] MEDS ORDERED: IV D5W 1,000 ML IV ONE (16:30)
[2025-04-13] MEDS: IV D5W 1,000 ML IV ONE (17:27)
[2025-04-14] VITALS: BP 127/103; TEMP 98; O2SAT 100
[2025-04-14 04:00] VITALS: BP 154/70; TEMP 98.9; O2SAT 100
[2025-04-14 08:00] VITALS: BP 120/87; TEMP 99.3; O2SAT 100
[2025-04-14] MEDS: THERAHONEY GEL 1.5 OZ TUBE TP SCH (09:56)
[2025-04-14 11:08] LABS: PLATELET COUNT (AUTO) 432 K/uL (150-450); RED BLOOD CELL COUNT(AUTO) 2.67 MIL/uL (4.5-6.0); RED CELL DISTRIBUTION WIDTH 15.1 % (11.5-15.0); WHITE BLOOD COUNT (AUTO) 10.2 K/uL (4.3-11.0)
[2025-04-14 11:26] LABS: CALCIUM, SERUM 8.8 mg/dL (8.5-10.1); CREATININE 2.0 mg/dL (0.6-1.3); SODIUM SERUM 148.0 mmol/L (136-145); UREA NITROGEN, BLOOD 41.0 mg/dL (7-18)
[2025-04-14 13:51] VITALS: BP 177/83
== END 2025-04-14 18:22 | DRG 720 ==
LOC: ER 11:12 → TELE-TD 14:25 → TELE1 04-10 10:08
PROVIDERS: ADMIT Nurse Practitioner Acute Care; ATTEND Nurse Practitioner Family
PROC: 5A1955Z Respiratory Ventilation, Greater than 96 Consecutive Hours (ICD-10-PCS; principal; 2025-04-09)
PROC: 30233N1 Transfusion of Nonautologous Red Blood Cells into Peripheral Vein, Percutaneous Approach (ICD-10-PCS; 2025-04-09)
PROC: 0DJ08ZZ Inspection of Upper Intestinal Tract, Via Natural or Artificial Opening Endoscopic (ICD-10-PCS; 2025-04-10)
DX: A41.9 Sepsis, unspecified organism (principal); N17.0 Acute kidney failure with tubular necrosis; J96.21 Acute and chronic respiratory failure with hypoxia; Z99.11 Dependence on respirator [ventilator] status; G93.41 Metabolic encephalopathy; J15.69 Pneumonia due to other Gram-negative bacteria; R53.2 Functional quadriplegia; Z93.0 Tracheostomy status; K21.9 Gastro-esophageal reflux disease without esophagitis; N18.9 Chronic kidney disease, unspecified; I12.9 Hypertensive chronic kidney disease with stage 1 through stage 4 chronic kidney disease, or unspecified chronic kidney disease; K29.51 Unspecified chronic gastritis with bleeding; Z93.1 Gastrostomy status; R13.10 Dysphagia, unspecified; Z87.820 Personal history of traumatic brain injury; G40.909 Epilepsy, unspecified, not intractable, without status epilepticus; Z79.4 Long term (current) use of insulin; Z79.51 Long term (current) use of inhaled steroids; Z79.899 Other long term (current) drug therapy; E11.22 Type 2 diabetes mellitus with diabetic chronic kidney disease; Z78.9 Other specified health status; Z87.440 Personal history of urinary (tract) infections; F20.9 Schizophrenia, unspecified; R65.20 Severe sepsis without septic shock; N39.0 Urinary tract infection, site not specified; E88.09 Other disorders of plasma-protein metabolism, not elsewhere classified; E87.1 Hypo-osmolality and hyponatremia; E44.0 Moderate protein-calorie malnutrition; E87.0 Hyperosmolality and hypernatremia; E86.9 Volume depletion, unspecified; D64.9 Anemia, unspecified; E86.0 Dehydration; E86.1 Hypovolemia; R64 Cachexia; Y95 Nosocomial condition; M89.8X9 Other specified disorders of bone, unspecified site
CPT/HCPCS: 31720; 36415; 71045-TC; 71250-TC; 80048-TC; 80053-TC; 80076-TC; 80202-TC; 81001; 82272-TC; 82550-TC; 82553; 82570-TC; 82962-TC; 83605-TC; 83735-TC; 83935-TC; 83970; 84100-TC; 84155; 84165; 84300-TC; 85025-TC; 85027-TC; 85610-TC; 85730-TC; 86850-TC; 87040-TC; 87081-TC; 87086-TC; 87186-TC; 94003-TC; 94760-TC; 94762-TC; 94799-TC; 99082-TC; A4223; A4623; G0378; J0330; J1815; J1953; J2470; J2543; J2704; J3373; J3374; J3480; J7030; J7050; J7060; J7070; P9016